=== PATIENT | male | born 1950 | race Caucasian/White ===

== ENCOUNTER → 2016-05-06 | Outpatient (CLI) | payer MEDICARE ==
[~2016-05-06] MED LIST: ADVIN25/60 INH; ALBUAER2 INH; AMLO2.5T PO; ASPCH81X PO; ATOR-54 PO; BROM0.07 OPL; BUPR200T2 PO; GABA1CAP PO; GABA1CAP4 PO; GLC500 PO; IPRA1AER2 INH; LOSA50TA6 PO; LVMI SC; METF1000 PO; METO50TA7 PO; NVLGI/PEN SC; PRED1SUS OPL; SERT50TA PO; SPRIN/30 INH
[2016-05-06 13:10] LABS: ESTIMATED AVERAGE GLUCOSE 194 mg/dl; HA1C FLAG Normal (Normal)
[2016-05-06 13:49] LABS: ALT/SGPT 46 U/L (12-78); BLOOD UREA NITROGEN 19 mg/dl (7-18); CALCIUM 9.3 mg/dl (8.5-10.1); CARBON DIOXIDE 25 mmol/L (21-32); CHLORIDE 109 mmol/L (98-107); CHOLESTEROL 158 mg/dl (0-200); GLUCOSE 242 mg/dl (70-99); POTASSIUM 4.9 mmol/L (3.5-5.1); SODIUM 143 mmol/L (136-145)
[2016-05-06 14:00] LABS: HDL CHOLESTEROL 40 mg/dl; TRIGLYCERIDES 218 mg/dl (0-150); VERY LOW DENSITY LIPOPROT CALC 44 mg/dl
== END | disposition home or self-care (01) ==
LOC: C.LABMFLN 11:18
PROVIDERS: ATTEND Family Medicine
DX: E11.9 Type 2 diabetes mellitus without complications (principal); E78.00 Pure hypercholesterolemia, unspecified; I10 Essential (primary) hypertension

== ENCOUNTER → 2016-05-12 | Day surgery (SDC) | payer MEDICARE ==
[2016-04-30 13:39] VITALS: Ht 181.6 cm; Wt 118.2 kg
[~2016-05-12] VITALS: Ht 181.6 cm; Wt 118.2 kg
[~2016-05-12] MED LIST changes: +500ML BSS 0.3ML EPI 1:1000PF IRRIG ONE; +ACETAMINOPHEN 325 MG TAB PO PRN; +AMVISC PLUS 0.8ML SYRINGE INT OCU ONE; +ATROPINE SULFATE 0.1 MG/ML 5ML SYR IV PRN; +AcetaZOLAMIDE 250 MG TAB PO SCH; +BETAXOLOL HCL 0.25% OP SUSP PER DROP CHARGE OPL SCH; +BRIMONIDINE TART 0.2% OP SOLN PER DROP CHARGE ONE; +BSS FLUSH ONE; +ENDOCOAT 0.85ML SYRINGE INT OCU ONE; +EpHEDrine SULFATE INJ 50 MG/ML AMP IV PRN; +EpINEphrine INJ 1MG/ML AMP 1 MG/ML AMP ONE; +LACTATED RINGER'S 1000ML 500 ML IV SCH; +LIDOCAINE 4% OP SOLN DROP CHARGE ONE; +LIDOCAINE 4% OP SOLN DROP CHARGE OPL SCH; +LIDOCAINE HCL 1% MPF 2 ML VIAL ONE; +MIDAZOLAM HCL 1 MG/ML 2ML VIAL ONE; +MIX: 4ML BSS 1ML EPI 1:1000 PF INSTIL ONE; +MOXIFLOXACIN OPH SOLN PER DROP CHARGE ONE; +OCUCOAT 1 ML SOLN IO ONE; +POVIDONE-IODINE OP SOLN 30 ML BTL ONE; +PROPARACAINE 0.5% OP SOLN PER DROP CHARGE OPL SCH; +TOBRAMYCIN/DEXAMETHASONE OPH OINT PER APPLN CHARGE ONE
--- NOTE | 2016-05-12 10:04 | History & Physical Bridge - [place] ---
H&P Re-Evaluation Bridge Note: I have examined the patient, reviewed the History & Physical and in the interval since the performance of the History & Physical I have noted the following changes of clinical significance: No changes noted
[2016-05-12] MEDS: PHENYLEPHRINE HCL 2.5% OP SOLN PER DROP CHARGE OPL SCH ×2 (11:00→11:05)
[2016-05-12] MEDS: TROPICAMIDE 1% OP SOLN PER DROP CHARGE OPL SCH ×2 (11:01→11:06)
[2016-05-12] MEDS: CYCLOPENTOLATE HCL 1% OP SOLN PER DROP CHARGE OPL SCH ×2 (11:02→11:07)
[2016-05-12] MEDS: MOXIFLOXACIN OPH SOLN PER DROP CHARGE OPL SCH ×2 (11:03→11:13)
--- NOTE | 2016-05-12 12:10 | Discharge Instructions-SurgCtr ---
Discharge Instructions Visit Reason for Visit: Cataract Left Eye Discharge Discharge Diagnosis / Problem: lens implant left eye Discharge Goals Goal(s): Improve function Medications Stopped Medications Name(s): metformin last dose 48 hours ago Activity Recommendations Activity Limitations: resume your previous activity Lifting Limitations: no more than 10 pounds Exercise/Sports Limitations: gradually increase as tolerated May Resume Sexual Activity: when tolerated Shower/Bathe: tomorrow Driving or Machine Use: resume 1 day after discharge Anesthesia . Post Anesthesia Instructions: If you have had General Anesthesia or IV Sedation: * Do not drive today. * Resume driving when surgeon permits. * Do not make important decisions or sign legal documents today. * Call surgeon for: 1. Temperature elevations greater than 101 degrees F. 2. Uncontrollable pain. 3. Excessive bleeding. 4. Persistent nausea and vomiting. 5. Medication intolerance (nausea, vomiting or rash). * For nausea and vomiting use only clear liquids such as: tea, soda, bouillon until nausea subsides, then gradually increase diet as tolerated. * If you have any concerns or questions, call your surgeon's office. If physician is unavailable and it is an emergency, call 911 or go to the nearest emergency room. . Instructions / Follow-Up Instructions / Follow-Up ACTIVITY RECOMMENDATIONS: * Light activities. * Mild irritation and blurred vision are common for the first few days. * You may walk outside, read, watch television. * Redness around the white part of the eye is common. MEDICATIONS: Resume previous medications unless instructed otherwise by your surgeon. * Take white Diamox (Acetazolamide) tablet at 3 pm today. Start all eye drops at 3 pm today: * Eye drops (today and tomorrow): Prednisone - one drop in operative eye every 3 hours while awake Ofloxacin - one drop in operative eye every 3 hours while awake SPECIAL CARE INSTRUCTIONS: * Tape plastic shield over eye to sleep at night. Call your doctor at with any concerns or problems. FOLLOW UP VISIT: Follow-up with Dr Agustin at [place] office as scheduled. Diet Recommendations Home Diet: no limitations Procedures Procedures Performed: cataract extraction with lens implant Pending Studies Studies pending at discharge: no Medical Emergencies . Who to Call and When: Medical Emergencies: If at any time you feel your situation is an emergency, please call 911 immediately. . Non-Emergent Contact Non-Emergency issues call your: Archeology Faculty Member Call Non-Emergent contact if: your pain is not controlled [phone] . . "Provider Documentation" section prepared by Aj Agustin.
--- NOTE | 2016-05-12 12:11 | [facility] Operative Report ---
Operative Report Date of Service May 12, 2016. Operative Report 1. PREOPERATIVE DIAGNOSIS: Senile nuclear cataract, left eye. 2. POSTOPERATIVE DIAGNOSIS: Senile nuclear cataract, left eye. 3. PROCEDURE: Phacoemulsification of left cataract with posterior chamber lens implant, type [employer]ch [employer] Lomb, model [id number], power +22.5 diopters. ANESTHESIA: Local standby. SURGEON: Dr. Agustin. COMPLICATIONS: None. OPERATING TIME: 10 minutes. 4. OPERATION AND FINDINGS: DESCRIPTION OF PROCEDURE: The left pupil was dilated. The anesthetic was administered using a topical technique. The left eye was prepped and draped. A speculum was placed. A clear corneal incision was formed. The chamber was filled with Amvisc Plus and Endocoat. Epinephrine solution was used. A paracentesis was placed. A capsulorrhexis was performed. The nucleus was hydrodissected. A dense lens was removed with phacoemulsification. Time was 10.67 seconds. The aspiration unit was used to remove the cortex. The capsule was filled with Amvisc Plus. The lens implant was folded and placed into the capsule. The incision was hydrated. The Amvisc was aspirated. The wound was secure. The chamber was deep. The pupil was round. TobraDex ointment and Vigamox solution were placed. The speculum was removed. The patient was returned to the Recovery Room in stable condition. I attest to the content of the Intraoperative Record and any orders documented therein. Any exceptions are noted below. The scribe's documentation has been prepared in my presence, under my direction and personally reviewed by me in its entirety. I confirm that the note above accurately reflects all work, treatment, procedures, and medical decision making performed by me. I personally scribed for Aj Agustin M.D. ([facility]) on 05/12/16 at 12:11. Electronically submitted by Priyanka Chamberlain ([facility]).
[2016-05-12 12:12] VITALS: TEMP 36.8
--- NOTE | 2016-05-12 12:27 | Anesthesia Progress Nt - [facility] ---
Anesthesia Post Op Note Date & Time May 12, 2016 at 12:28 Vital Signs Pain Intensity: 0 Vital Signs Past 12 Hours Date Time Temp Pulse Resp B/P Pulse Ox O2 Delivery O2 Flow Rate FiO2 05/12/16 10:44 36.6 84 20 146/86 96 Room Air Notes Mental Status: alert / awake / arousable, participated in evaluation Pt Amnestic to Procedure: Yes Nausea / Vomiting: adequately controlled Pain: adequately controlled Airway Patency, RR, SpO2: stable & adequate BP & HR: stable & adequate Hydration State: stable & adequate Anesthetic Complications: no major complications apparent
[2016-05-12 12:50] VITALS: BP 127/77; PULSE 74; O2SAT 97
== END | disposition home or self-care (01) ==
LOC: X.SURG 09:59
PROVIDERS: ATTEND Specialist
DX: H25.12 Age-related nuclear cataract, left eye (principal); I25.10 Atherosclerotic heart disease of native coronary artery without angina pectoris; I10 Essential (primary) hypertension; E11.36 Type 2 diabetes mellitus with diabetic cataract; J44.9 Chronic obstructive pulmonary disease, unspecified; G47.33 Obstructive sleep apnea (adult) (pediatric); M19.90 Unspecified osteoarthritis, unspecified site; F41.9 Anxiety disorder, unspecified; F32.9 Major depressive disorder, single episode, unspecified; Z68.36 Body mass index [BMI] 36.0-36.9, adult; I25.2 Old myocardial infarction; Z79.4 Long term (current) use of insulin; Z98.890 Other specified postprocedural states; Z87.891 Personal history of nicotine dependence

== ENCOUNTER → 2016-06-16 | Day surgery (SDC) | payer MEDICARE ==
[2016-05-27 13:18] VITALS: Ht 181.6 cm; Wt 118.2 kg
[~2016-06-16] VITALS: Ht 181.6 cm; Wt 118.2 kg
[~2016-06-16] MED LIST changes: -500ML BSS 0.3ML EPI 1:1000PF IRRIG ONE; -AMVISC PLUS 0.8ML SYRINGE INT OCU ONE; -BETAXOLOL HCL 0.25% OP SUSP PER DROP CHARGE OPL SCH; +BETAXOLOL HCL 0.25% OP SUSP PER DROP CHARGE OPR SCH; -BSS FLUSH ONE; -ENDOCOAT 0.85ML SYRINGE INT OCU ONE; -LIDOCAINE 4% OP SOLN DROP CHARGE OPL SCH; +LIDOCAINE 4% OP SOLN DROP CHARGE OPR SCH; -MIX: 4ML BSS 1ML EPI 1:1000 PF INSTIL ONE; -OCUCOAT 1 ML SOLN IO ONE; -PROPARACAINE 0.5% OP SOLN PER DROP CHARGE OPL SCH; +PROPARACAINE 0.5% OP SOLN PER DROP CHARGE OPR SCH
[2016-06-16] MEDS: PHENYLEPHRINE HCL 2.5% OP SOLN PER DROP CHARGE OPR SCH ×2 (08:44→08:49)
[2016-06-16] MEDS: TROPICAMIDE 1% OP SOLN PER DROP CHARGE OPR SCH ×2 (08:45→08:50)
[2016-06-16] MEDS: CYCLOPENTOLATE HCL 1% OP SOLN PER DROP CHARGE OPR SCH ×2 (08:46→08:51)
[2016-06-16] MEDS: MOXIFLOXACIN OPH SOLN PER DROP CHARGE OPR SCH ×2 (08:47→08:56)
--- NOTE | 2016-06-16 09:38 | Discharge Instructions-SurgCtr ---
Discharge Instructions Date of Service Jun 16, 2016. Visit Reason for Visit: Cataract Right Eye Discharge Discharge Diagnosis / Problem: lens implnat right eye Discharge Goals Goal(s): Improve function Activity Recommendations Activity Limitations: resume your previous activity Lifting Limitations: no more than 10 pounds Exercise/Sports Limitations: gradually increase as tolerated May Resume Sexual Activity: when tolerated Shower/Bathe: tomorrow Driving or Machine Use: resume 1 day after discharge Anesthesia . Post Anesthesia Instructions: If you have had General Anesthesia or IV Sedation: * Do not drive today. * Resume driving when surgeon permits. * Do not make important decisions or sign legal documents today. * Call surgeon for: 1. Temperature elevations greater than 101 degrees F. 2. Uncontrollable pain. 3. Excessive bleeding. 4. Persistent nausea and vomiting. 5. Medication intolerance (nausea, vomiting or rash). * For nausea and vomiting use only clear liquids such as: tea, soda, bouillon until nausea subsides, then gradually increase diet as tolerated. * If you have any concerns or questions, call your surgeon's office. If physician is unavailable and it is an emergency, call 911 or go to the nearest emergency room. . Instructions / Follow-Up Instructions / Follow-Up ACTIVITY RECOMMENDATIONS: * Light activities. * Mild irritation and blurred vision are common for the first few days. * You may walk outside, read, watch television. * Redness around the white part of the eye is common. MEDICATIONS: Resume previous medications unless instructed otherwise by your surgeon. * Take white Diamox (Acetazolamide) tablet at 1 pm today. Start all eye drops at 1 pm today: * Eye drops (today and tomorrow): Prednisone - one drop in operative eye every 3 hours while awake Ofloxacin - one drop in operative eye every 3 hours while awake SPECIAL CARE INSTRUCTIONS: * Tape plastic shield over eye to sleep at night. Call your doctor at with any concerns or problems. FOLLOW UP VISIT: Follow-up with Dr Agustin at [facility] as scheduled. Diet Recommendations Home Diet: no limitations Procedures Procedures Performed: cataract extraction with lens implant Pending Studies Studies pending at discharge: no Medical Emergencies . Who to Call and When: Medical Emergencies: If at any time you feel your situation is an emergency, please call 911 immediately. . Non-Emergent Contact Non-Emergency issues call your: Process Excellence Manager Call Non-Emergent contact if: your pain is not controlled [phone] . . "Provider Documentation" section prepared by Aj Agustin.
[2016-06-16 09:42] VITALS: TEMP 36.8
--- NOTE | 2016-06-16 09:42 | [facility] Operative Report ---
Operative Report Date of Service Jun 16, 2016. Operative Report 1. PREOPERATIVE DIAGNOSIS: Senile Posterior Subcapsular Cataract, right eye. 2. POSTOPERATIVE DIAGNOSIS: Senile Posterior Subcapsular Cataract, right eye. 3. PROCEDURE: Phacoemulsification of right cataract with posterior chamber lens implant, type Wilbert, model SN6AT4, power +22.5 diopters. ANESTHESIA: Local standby. SURGEON: Dr. Agustin. COMPLICATIONS: None. OPERATING TIME: 10 minutes. 4. OPERATION AND FINDINGS: DESCRIPTION OF PROCEDURE: The right pupil was dilated. The anesthetic was administered using a topical technique. The right eye was prepped and draped. A speculum was placed. A clear corneal incision was formed. The chamber was filled with Amvisc Plus and Endocoat. Epinephrine solution was used. A paracentesis was placed. A capsulorrhexis was performed. The nucleus was hydrodissected. The lens was removed with phacoemulsification. Time was 4.70 seconds. The aspiration unit was used to remove the cortex. The capsule was filled with Amvisc Plus. The lens implant was folded and placed into the capsule. The incision was hydrated. The Amvisc was aspirated. The wound was secure. The chamber was deep. The pupil was round. Brimonidine, TobraDex ointment and Vigamox solution were placed. The speculum was removed. The patient was returned to the Recovery Room in stable condition. I attest to the content of the Intraoperative Record and any orders documented therein. Any exceptions are noted below. The scribe's documentation has been prepared in my presence, under my direction and personally reviewed by me in its entirety. I confirm that the note above accurately reflects all work, treatment, procedures, and medical decision making performed by me. I personally scribed for Aj Agustin M.D. ([facility]) on 06/16/16 at 09:42. Electronically submitted by Priyanka Chamberlain ([email or web address]).
[2016-06-16 10:05] VITALS: BP 140/85; PULSE 76; O2SAT 97
--- NOTE | 2016-06-16 10:07 | Anesthesia Progress Nt - [facility] ---
Anesthesia Post Op Note Date & Time Jun 16, 2016 at 10:07 Vital Signs Pain Intensity: 0 Vital Signs Past 12 Hours Date Time Temp Pulse Resp B/P Pulse Ox O2 Delivery O2 Flow Rate FiO2 06/16/16 10:05 76 18 140/85 97 Room Air 06/16/16 09:42 36.8 69 20 159/91 96 Room Air 06/16/16 08:33 36.7 75 16 146/92 96 Room Air Notes Mental Status: alert / awake / arousable, participated in evaluation Pt Amnestic to Procedure: Yes Nausea / Vomiting: adequately controlled Pain: adequately controlled Airway Patency, RR, SpO2: stable & adequate BP & HR: stable & adequate Hydration State: stable & adequate Anesthetic Complications: no major complications apparent
== END | disposition home or self-care (01) ==
LOC: X.SURG 07:50
PROVIDERS: ATTEND Specialist
DX: H25.041 Posterior subcapsular polar age-related cataract, right eye (principal); I10 Essential (primary) hypertension; I25.10 Atherosclerotic heart disease of native coronary artery without angina pectoris; G47.33 Obstructive sleep apnea (adult) (pediatric); I25.2 Old myocardial infarction; E11.9 Type 2 diabetes mellitus without complications; Z79.4 Long term (current) use of insulin

== ENCOUNTER → 2016-08-23 | Outpatient (CLI) | payer MEDICARE ==
[~2016-08-23] MED LIST changes: -ACETAMINOPHEN 325 MG TAB PO PRN; -ATROPINE SULFATE 0.1 MG/ML 5ML SYR IV PRN; -AcetaZOLAMIDE 250 MG TAB PO SCH; -BETAXOLOL HCL 0.25% OP SUSP PER DROP CHARGE OPR SCH; -BRIMONIDINE TART 0.2% OP SOLN PER DROP CHARGE ONE; -EpHEDrine SULFATE INJ 50 MG/ML AMP IV PRN; -EpINEphrine INJ 1MG/ML AMP 1 MG/ML AMP ONE; -LACTATED RINGER'S 1000ML 500 ML IV SCH; -LIDOCAINE 4% OP SOLN DROP CHARGE ONE; -LIDOCAINE 4% OP SOLN DROP CHARGE OPR SCH; -LIDOCAINE HCL 1% MPF 2 ML VIAL ONE; -MIDAZOLAM HCL 1 MG/ML 2ML VIAL ONE; -MOXIFLOXACIN OPH SOLN PER DROP CHARGE ONE; -POVIDONE-IODINE OP SOLN 30 ML BTL ONE; -PROPARACAINE 0.5% OP SOLN PER DROP CHARGE OPR SCH; -TOBRAMYCIN/DEXAMETHASONE OPH OINT PER APPLN CHARGE ONE
[2016-08-23 12:59] LABS: BASO % 0.4 %; BASO ABS # 0.03 K/uL (0-0.2); COMPLETE YES; EOS % 1.6 %; HEMATOCRIT 33.4 % (42-52); IG% 0.2 %; LYMPH % 14.5 %; LYMPH ABS # 1.19 K/uL (1.2-3.4); MEAN CELL VOLUME 96.3 fL (80-100); MEAN CORPUSCULAR HEMOGLOBIN 31.4 pg (25-34); MEAN CORPUSCULAR HGB CONC 32.6 g/dl (32-36); MEAN PLATELET VOLUME 10.8 fL (7.4-10.4); MONO % 7.1 %; NEUT % 76.2 %; PLATELET COUNT 257 K/uL (130-400); RED BLOOD COUNT 3.47 M/uL (4.7-6.1); WHITE BLOOD COUNT 8.21 K/uL (4.8-10.8)
[2016-08-23 13:21] LABS: ESTIMATED AVERAGE GLUCOSE 214 mg/dl; HA1C FLAG Normal (Normal)
[2016-08-23 13:50] LABS: RATIO 22.1 mcg/mg (0-30.0)
[2016-08-23 13:59] LABS: ALT/SGPT 143 U/L (12-78); AST/SGOT 71 U/L (15-37); BLOOD UREA NITROGEN 17 mg/dl (7-18); CALCIUM 9.1 mg/dl (8.5-10.1); CARBON DIOXIDE 25 mmol/L (21-32); CHLORIDE 109 mmol/L (98-107); GLUCOSE 116 mg/dl (70-99); POTASSIUM 4.5 mmol/L (3.5-5.1); SODIUM 141 mmol/L (136-145)
[2016-08-23 14:11] LABS: ALB/GLOB RATIO 0.6 (0.9-2); ALKALINE PHOSPHATASE 226 U/L (45-117); PROSTATE SPECIFIC ANTIGEN 0.232 ng/ml (0.000-4.000); RHEUMATOID FACTOR < 10.0 U/mL (0-15)
[2016-08-23 14:21] LABS: LYME DISEASE AB IGG POS (NEG); LYME DISEASE AB IGM POS (NEG)
[2016-08-26 09:06] LABS: 18KDIGG BAND REACTIVE (NONREACTIVE); 23KDIGG BAND REACTIVE (NONREACTIVE); 23KDIGM BAND REACTIVE (NONREACTIVE); 28KDIGG BAND NONREACTIVE (NONREACTIVE); 30KDIGG BAND NONREACTIVE (NONREACTIVE); 39KDIGG BAND NONREACTIVE (NONREACTIVE); 39KDIGM BAND REACTIVE (NONREACTIVE); 41KDIGG BAND REACTIVE (NONREACTIVE); 41KDIGM BAND REACTIVE (NONREACTIVE); 45KDIGG BAND REACTIVE (NONREACTIVE); 58KDIGG BAND REACTIVE (NONREACTIVE); 66KDIGG BAND NONREACTIVE (NONREACTIVE); 93KDIGG BAND NONREACTIVE (NONREACTIVE)
== END | disposition home or self-care (01) ==
LOC: C.LABMFLN 11:28
PROVIDERS: ATTEND Family Medicine
DX: E11.9 Type 2 diabetes mellitus without complications (principal); M25.50 Pain in unspecified joint; R07.2 Precordial pain; A69.20 Lyme disease, unspecified; Z12.5 Encounter for screening for malignant neoplasm of prostate

== ENCOUNTER 2016-10-13 21:12 | Emergency (ER) | payer MEDICARE ==
[~2016-10-13] VITALS: Ht 182.9 cm; Wt 97.0 kg
[~2016-10-13 21:12] MED LIST changes: -AMLO2.5T PO; -GABA1CAP4 PO; -GLC500 PO
[2016-10-13 21:15] VITALS: Ht 182.9 cm; Wt 97.0 kg
[2016-10-13] MEDS ORDERED: AMLO2.5T PO (21:55)
[2016-10-13] MEDS ORDERED: GLC500 PO (21:55)
[2016-10-13] MEDS ORDERED: GABA1CAP4 PO (21:55)
--- NOTE | 2016-10-13 22:11 | DIAGNOSTIC IMAGING REPORT ---
LEFT ANKLE MIN 3 VIEWS ROUTINE CLINICAL HISTORY: Left lower leg pain. COMPARISON: None FINDINGS: Alignment of the left ankle is anatomic. There is no acute fracture. Note is made of a 2.2 x 2 cm lucent lesion within the anterior process of the calcaneus. Talar dome is intact. There is mild posterior and plantar calcaneal spurring. IMPRESSION: 1. No acute fracture. 2. 2.2 x 2 cm lucent lesion within the calcaneus. This lesion is benign. Differential considerations include a bone cyst and intraosseous lipoma. 3. Mild posterior and plantar calcaneal spurring. Electronically signed by: Cheo Sotelo M.D. 10/13/2016 10:10 PM Dictated Date/Time: 10/13/2016 10:02 PM
--- NOTE | 2016-10-13 22:18 | DIAGNOSTIC IMAGING REPORT ---
LEFT LOWER EXTREMITY VENOUS DOPPLER CLINICAL HISTORY: Left lower leg pain. COMPARISON STUDY: No previous studies for comparison. TECHNIQUE: Sonography of the deep venous system of the left lower extremity was performed. Compression and augmentation were evaluated. FINDINGS: The left common femoral, superficial femoral and popliteal veins were compressible. Augmentation was normal. Flow was shown within the deep calf vessels. IMPRESSION: No evidence of deep venous thrombus within the left lower extremity. Electronically signed by: Cheo Sotelo M.D. 10/13/2016 10:17 PM Dictated Date/Time: 10/13/2016 10:17 PM
--- NOTE | 2016-10-13 22:24 | EMERGENCY ROOM VISIT NOTE ---
History First contact with patient: 21:23 Chief Complaint: LEG PAIN,LEG INJURY Stated Complaint: LEG PAIN History of Present Illness The patient is a 66 year old male who presents to the Emergency Room with complaints of left lower leg pain and swelling for the past day after lifting his leg up to get on the mower. Patient is unsure if he twisted his leg. He does have peripheral neuropathy and does not have agrees feeling in his legs. No history DVT or PE in the past. Patient denies chest pain, dyspnea, fever, chills, cough, congestion, abdominal pain. Pain currently 4 out of 10 worse with movement and better with rest describes as throbbing. Review of Systems See HPI for pertinent positives & negatives. A total of 10 systems reviewed and were otherwise negative. Past Medical/Surgical History COPD, diabetes, hypertension, peripheral neuropathy, hyperlipidemia Social History Smoking Status: Former Smoker Housing Status: lives with family Current/Historical Medications Scheduled Amlodipine Besylate (Norvasc), 1 TAB PO DAILY Aspirin (Aspirin Chewable), 81 MG PO QAM Atorvastatin (Lipitor), 20 MG PO HS Bromfenac Sodium (Ophth) (Prolensa), 1 DROP OPL DAILY Bupropion (Wellbutrin Sr), 200 MG PO BID Fluticasone Prop/Salmeterol (Advair Diskus 250/50 60 Dose), 1 PUFF INH QAM Gabapentin (Gabapentin), 1 TAB PO TID Insulin Aspart (Novolog Flexpen), 1 DOSE SC ACHS Insulin Detemir (Levemir), 62 UNITS SC HS Losartan Potassium (Cozaar), 50 MG PO QAM Metformin HCl (Metformin HCl), 2 TAB PO BID Metoprolol Succ (Toprol Xl) (Toprol-Xl), 50 MG PO QAM Prednisolone Acetate (Ophth) (Omnipred), 1 DROPS OPL BID Sertraline (Zoloft), 50 MG PO QAM Tiotropium [place] (Spiriva Handihaler), 1 CAP INH BID Scheduled PRN Ipratropium-Albuterol (Combivent Respimat), 1 PUFFS INH QID PRN for Shortness of Breath Physical Exam Vital Signs Date Time Temp Pulse Resp B/P (MAP) Pulse Ox O2 Delivery O2 Flow Rate FiO2 10/13/16 21:15 37.0 80 16 143/83 97 Room Air Physical Exam VITALS: Vitals are noted on the nurse's note and reviewed by myself. Vital signs stable. GENERAL: Pleasant male, in no acute distress, nondiaphoretic, well-developed well-nourished. SKIN: Capillary reflex less than 2 seconds. HEENT: Normocephalic. PERRLA. EOMI. Nares patent. Mucous membranes moist. Neck is supple without nuchal rigidity. HEART: Regular rate and rhythm LUNGS: Clear to auscultation bilaterally without wheezes, rales or rhonchi. No retractions or accessory muscle use. ABDOMEN: Positive bowel sounds x 4. Normal tympanic percussion. Soft, nontender, without masses or organomegaly. Banuelos sign negative. No guarding or rebound tenderness. MUSCULOSKELETAL: No gross musculoskeletal defects. Trace left pedal edema. Left calf tenderness. Right lower leg with no edema and nontender to palpation. NEURO: Patient was alert and oriented to person place and time. Normal sensation to light and sharp touch. No focal neurological deficits. Medical Decision & Procedures ED Course Prior records reviewed and summarized above. Triage Nursing notes reviewed. Additional history obtained from the family. The patient's history was concerning for swelling and pain in the leg. Differential diagnosis: Etiologies such as DVT, musculoskeletal, infection, joint effusion, trauma, lymphedema, idiopathic, CHF, as well as others were entertained.. Physical examination: The physical examination revealed no signs of infection. Neurovascularly intact. ER treatment provided: Patient declined pain meds On reassessment the patient felt better. Diagnostics interpreted by me: Imaging studies: Ultrasound negative for DVT per radiology LEFT ANKLE MIN 3 VIEWS ROUTINE CLINICAL HISTORY: Left lower leg pain. COMPARISON: None FINDINGS: Alignment of the left ankle is anatomic. There is no acute fracture. Note is made of a 2.2 x 2 cm lucent lesion within the anterior process of the calcaneus. Talar dome is intact. There is mild posterior and plantar calcaneal spurring. IMPRESSION: 1. No acute fracture. 2. 2.2 x 2 cm lucent lesion within the calcaneus. This lesion is benign. Differential considerations include a bone cyst and intraosseous lipoma. 3. Mild posterior and plantar calcaneal spurring. This appears to be consistent with left lower leg pain that most likely his muscle skeletal in etiology. Patient has a walker at home was advised to use this. He was placed in an air gel splint for comfort and advised to wear this until pain subsides. Neurovascular status was rechecked after placement and is intact. Patient was neurovascularly and neurologically intact. He is well- appearing. He was advised to follow-up with family care in orthopedics in a few days or here in the ER sooner for severe pain, numbness, tingling, worsening signs or symptoms or as needed. By the evaluation outlined above emergent etiologies such as DVT, septic joint, trauma, infection, CHF, as well as others were deemed relatively unlikely. The pt informed about the findings as listed above. All questions were answered and pleased with the treatment. Return instructions were outlined and the patient was discharged in stable condition. Referral: The patient was referred back to their primary care physician for follow-up in 2 to 3 days for a recheck of the current condition. Case reviewed with my attending. Medical Decision As above [place] Drug Monitoring Program Search Results: patient reviewed within database Medication Reconcilliation Current Medication List: was personally reviewed by me Blood Pressure Screening Patient's blood pressure: Elevated blood pressure Blood pressure disposition: Elevated BP felt to be situational Impression Primary Impression: Pain in left lower leg Departure Information Dispostion Home / Self-Care Condition GOOD Referrals Ricky Schultz M.D. (PCP) Patient Instructions My [facility] Additional Instructions Ibuprofen(Motrin, Advil) may be used for fever or pain. Use 600mg every six hours as needed. Take with food. Avoid using more than 2400mg in a 24 hour period. Do not use 2400mg per day for more than three consecutive days without physician direction. Prolonged inappropriate use can lead to stomach upset or ulcers. This medication can be taken if you need to drive, work, or perform activities which may be dangerous when taking narcotic pain medication. (AND/OR) Acetaminophen(Tylenol) may be used for fever or pain. Use 1000mg every six hours as needed. Avoid using more than 3000mg in a 24 hour period. This medication can be taken if you need to drive, work, or perform activities which may be dangerous when taking narcotic pain medication. Ice compresses for 20 minutes at a time four times daily for 2-3 days. Use your walker until you are pain-free Rest and elevate your injury. Wear ankle gel splint until pain subsides. Do not have it so tight that you cannot feel your foot. Continue current medications. Return to the ER immediately for any numbness, tingling, severe pain, extreme swelling in the extremity or as needed. Call Orthopedics in 3-5 days if symptoms persist to arrange follow up for your injury.
[2016-10-13 22:31] VITALS: BP 143/83; PULSE 80; TEMP 37; O2SAT 97
--- NOTE | 2016-10-13 22:35 | EMERGENCY ROOM VISIT NOTE ---
ED Visit Note First contact with patient: 21:23 This Patient was discussed with the physician Wholesaler, GREGORY Bateman. The pertinent historical and physical exam findings were confirmed. I agree with the studies ordered and with the interpretations of these studies. I agree with the disposition and care plan.
== END 2016-10-13 22:32 | disposition home or self-care (01) ==
LOC: C.EDB 21:13 → C.EDD 22:32
DX: M79.662 Pain in left lower leg (principal); M89.8X7 Other specified disorders of bone, ankle and foot; E11.42 Type 2 diabetes mellitus with diabetic polyneuropathy; I10 Essential (primary) hypertension; J44.9 Chronic obstructive pulmonary disease, unspecified; E78.5 Hyperlipidemia, unspecified; Z79.82 Long term (current) use of aspirin; Z79.4 Long term (current) use of insulin; Z79.84 Long term (current) use of oral hypoglycemic drugs; Z87.891 Personal history of nicotine dependence

== ENCOUNTER → 2016-12-31 | Outpatient (CLI) | payer MEDICARE ==
[~2016-12-31] MED LIST changes: -ALBUAER2 INH; +AMLO2.5T PO; -GABA1CAP PO; +GABA1CAP4 PO; +GLC500 PO; -METF1000 PO
[2016-12-31 13:40] LABS: ESTIMATED AVERAGE GLUCOSE 174 mg/dl; HA1C FLAG Normal (Normal)
[2016-12-31 14:08] LABS: BLOOD UREA NITROGEN 22 mg/dl (7-18); BUN/CREATININE RATIO 16.7 (10-20); CALCIUM 9.9 mg/dl (8.5-10.1); CARBON DIOXIDE 29 mmol/L (21-32); CHLORIDE 105 mmol/L (98-107); GLUCOSE 186 mg/dl (70-99); POTASSIUM 4.9 mmol/L (3.5-5.1); SODIUM 139 mmol/L (136-145)
== END | disposition home or self-care (01) ==
LOC: C.LABMFLN 08:49
PROVIDERS: ATTEND Family Medicine
DX: E11.9 Type 2 diabetes mellitus without complications (principal)

== ENCOUNTER 2017-08-05 11:14 | Emergency (ER) | payer OTHER ==
[~2017-08-05] VITALS: Ht 180.3 cm; Wt 104.0 kg
[~2017-08-05 11:14] MED LIST changes: -BROM0.07 OPL; +GABA-1219 PO; -GABA1CAP4 PO; -METO50TA7 PO; +METO50TA8 PO; -PRED1SUS OPL
[2017-08-05 11:23] VITALS: TEMP 36.6; Ht 180.3 cm; Wt 104.0 kg
[2017-08-05] MEDS ORDERED: LIDODERM (LIDOCAINE) PATCH 5% TD STA (11:47)
[2017-08-05] MEDS ORDERED: ACETAMINOPHEN 500 MG TAB PO STA (11:47)
[2017-08-05] MEDS ORDERED: LIDO1PAD2 TD ×2 (12:01→13:11)
--- NOTE | 2017-08-05 12:05 | EMERGENCY ROOM VISIT NOTE ---
ED Visit Note First contact with patient: 11:31 CHIEF COMPLAINT: Low back pain, chronic spinal stenosis HISTORY OF PRESENT ILLNESS: This 67-year-old male patient presents to the emergency department, ambulatory, complaining of pain in the low back which began 1 year ago. The pain was gradual in onset, is now constant and worse with movement. The patient states over the past 2 months the symptoms have been worsening, and they became more severe over the past few days. The pain is consistent with his previous pain, except more severe. He is currently seeing his primary care, neurology, and pain management and is scheduled to have an injection performed in August. The patient notes the pain as sharp and a 10/10. The patient has taken ibuprofen without relief of the pain. The patient denies any loss of control of their bowel or bladder functions. There has been no leg numbness or weakness, and no change in sensation. No nausea or vomiting or abdominal pain. No fever. No chest pain or shortness of breath. The patient has not had prior back injuries. There was no recent back injury to cause a flareup of his symptoms. No dysuria or increased urinary frequency. REVIEW OF SYSTEMS: A 10 system review of systems was performed with positives and pertinent negatives listed in the history of present illness. All other systems were reviewed and are negative. ALLERGIES: Hydrocodone MEDICATIONS: Amlodipine, aspirin, Lipitor, Wellbutrin, Advair, gabapentin, NovoLog, Levemir, Combivent, Cozaar, metformin, Toprol, Zoloft, Spiriva PMH: Diabetes, hypertension, asthma, bronchitis, emphysema, spinal stenosis SOCIAL HISTORY: The patient lives locally with family. He denies drug, alcohol, tobacco use. PHYSICAL EXAM: VITALS: Vitals are noted on the nurse's note and reviewed by myself. Vital signs stable. GENERAL: This is a 67-year-old white male, in no acute distress, nondiaphoretic , well-developed well-nourished. SKIN: The skin was without rashes, erythema, edema, or bruising. Capillary refill less than 2 seconds. NECK: Supple without nuchal rigidity. No cervical spine tenderness. No paraspinous muscle tenderness. HEART: Regular rate and rhythm without murmurs gallops or rubs. LUNGS: Clear to auscultation bilaterally without wheezes, rales or rhonchi. ABDOMEN: Positive bowel sounds x 4. Normal tympanic percussion. Soft, nontender, without masses or organomegaly. Banuelos sign negative. MUSCULOSKELETAL: No muscle atrophy, erythema, or edema noted of the back. There is no tenderness over the lumbar spinous processes. There is no tenderness over the paraspinous muscles bilaterally. There is no tenderness over the thoracic spine or paraspinous muscles. There are no muscle spasms present. The patient is slow to move around with maximum tenderness with sitting from a lying position. Negative bilateral straight leg raise test. NEURO: Patient was alert and oriented to person place and time. Normal sensation to light and sharp touch. Deep tendon reflexes 2+ in the lower extremities. Dorsalis pedis pulse 2+ bilaterally. Strength 5/5 and equal in the bilateral lower extremities. EMERGENCY DEPARTMENT COURSE: The patient was seen and evaluated as above. The patient is currently under the care of neurology, his primary care provider, and pain management. He is scheduled to have an injection on September 08. Previous medical records reviewed, including an MRI which was performed June 15. 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 Slight anterior listhesis of L4 over L5. Canal stenosis appears moderate L2-L3 and moderate to severe at L4-L5. Foraminal narrowing appears significant at L4-5 and L5-S1 levels. I discussed with the patient and his that his symptoms are chronic and that he will need to manage this outpatient. They were under the impression that if they came to the emergency department, a spine surgeon would be called in and he would have surgery and be admitted for a few days. I advised the patient that as he is not experiencing any emergent symptoms including saddle anesthesia, lower extremity weakness, loss of bowel or bladder function, or other neurological symptoms that he does not meet criteria for inpatient management. I did offer to contact the spine surgeon, but discussed with him that they would likely advise the patient to call and schedule an appointment to be seen outpatient. The patient's did ask if we would schedule an appointment. I did ask the patient case coordinator to speak with the patient and schedule an appointment with the spine surgeon. The patient case coordinator did speak with the patient and his . They were under the impression that the patient will be set up with a neurologist. I advised them that Dr. Marcelino and Dr. Sutton our orthopedic spine surgeons and this is who I would recommend they see. I did provide them with the contact information to schedule their own appointment with Dr. Sutton at the request. I did offer the patient a Lidoderm patch and discussed with him the importance of alternating Tylenol and ibuprofen [id number] for increased pain management. The patient was agreeable. He was given a Lidoderm patch here in the emergency department and a prescription sent to the pharmacy. He did note mild improvement in his symptoms. Discharge instructions reviewed, the patient was discharged home in good condition. The patient was seen and evaluated by Dr. Gutiérrez. I attest that I have personally reviewed the patient's current medication list. Patient was found to have normal blood pressure on screening and does not require follow-up. Etiologies such as lumbago, sciatica, cauda equina, epidural abscess, osteomyelitis, fracture, aortic disease, metastatic disease, chronic pain, infection, renal colic, gastrointestinal, as well as others were entertained. DIAGNOSIS: Chronic spinal stenosis The chart was completed utilizing [employer] Speech voice recognition software. Grammatical errors, random word insertions, pronoun errors, and incomplete sentences are an occasional consequence of this system due to software limitations, ambient noise, and hardware issues. Any formal questions or concerns about the content, text, or information contained within the body of this dictation should be directly addressed to the provider for clarification. Current/Historical Medications Scheduled Amlodipine Besylate (Norvasc), 1 TAB PO DAILY Aspirin (Aspirin Chewable), 81 MG PO QAM Bupropion (Wellbutrin Sr), 200 MG PO BID Fluticasone Prop/Salmeterol (Advair Diskus 250/50 60 Dose), 1 PUFF INH QAM Gabapentin (Gabapentin), 1 TAB PO TID Insulin Aspart (Novolog Flexpen), 1 DOSE SC ACHS Insulin Detemir (Levemir), 20 UNITS SC BID Losartan Potassium (Cozaar), 50 MG PO QAM Metformin HCl (Metformin HCl), 1,000 MG PO BID Metoprolol Succ (Toprol Xl) (Toprol-Xl), 50 MG PO QAM Sertraline (Zoloft), 50 MG PO QAM Tiotropium [place] (Spiriva Handihaler), 1 CAP INH BID Scheduled PRN Ipratropium-Albuterol (Combivent Respimat), 1 PUFFS INH QID PRN for Shortness of Breath Lidocaine (Lidocaine), 1 PATCH TD QD PRN for Pain Allergies Coded Allergies: Hydrocodone (Verified Adverse Reaction, Mild, constipation, 08/05/17) Vital Signs Date Time Temp Pulse Resp B/P (MAP) Pulse Ox O2 Delivery O2 Flow Rate FiO2 08/05/17 13:19 65 18 127/76 96 08/05/17 11:23 36.6 68 16 175/82 97 Room Air Medications Administered Medications (Trade) Dose Ordered Sig/Loyda Route Start Time Stop Time Status Last Admin Dose Admin Acetaminophen (Tylenol Tab) 1,000 mg NOW STAT PO 08/05/17 11:47 08/05/17 11:49 DC 08/05/17 12:03 1,000 MG Lidocaine (Lidoderm Patch 5%) 1 patch NOW STAT TD 08/05/17 11:47 08/05/17 11:49 DC 08/05/17 12:04 1 PATCH Departure Information Impression Primary Impression: Spinal stenosis of lumbar region Dispostion Home / Self-Care Condition GOOD Prescriptions Lidocaine (LIDOCAINE) 5 % Pad 1 PATCH TD QD Y for Pain, #30 PATCH apply 1 patch in 24 hours. Patch must be removed after 12 hours, apply a new patch 12 hours later. Prov: Stephanie Camp, VICKI 08/05/17 Referrals Ricky Schultz M.D. (PCP) Sarwat Sutton D.O. Patient Instructions [facility], Spinal Cord Disease Additional Instructions You have been treated in the Emergency Department for Back Pain. You have been prescribed Lidoderm patches to be used as directed. You may only use 1 patch in 24 hours. This patch must be removed after 12 hours and a new a patch may not be applied for 12 hours after removal of the previous one. For pain control, you can use the following [id number] medicines (if >12 yo): Ibuprofen(Motrin, Advil) may be used for fever or pain. Use 600mg every six hours as needed. Take with food. Avoid using more than 2400mg in a 24 hour period. Do not use 2400mg per day for more than three consecutive days without physician direction. Prolonged inappropriate use can lead to stomach upset or ulcers. (AND/OR) Acetaminophen(Tylenol) may be used for fever or pain. Use 1000mg every six hours as needed. Avoid using more than 3000mg in a 24 hour period. *Alternate these medications every 2-3 hours for increased control of your symptoms. You may consider Tumeric 500mg daily, Glucosamine as directed on packaging, and Fish Oil 2000mg daily for your symptoms. These supplements can help with inflammation and your pain. As discussed, your condition is chronic. It may or may not be surgical. You were provided with the contact information for a local spine surgeon. Please schedule an appointment at your convenience. Continue to follow-up with your neurologist, primary care provider, and spray painting machine operator for ongoing care. If this is an acute injury, ice can be applied to the area of pain for the first 3 days to help decrease pain and inflammation. After the first 3 days, a heating pad can be used over the area for continued soothing relief. You should schedule a follow-up appointment in 2-3 days with your Primary Care Provider for further evaluation and treatment of your back pain. Return to the Emergency Department if your current symptoms worsen despite treatment course outlined above, or if you develop any of the following symptoms : intractable pain despite aforementioned treatment course, loss of control of your bowel or bladder, numbness or tingling in your groin, or development of a fever. Problem Qualifiers Primary Impression: Spinal stenosis of lumbar region Neurogenic claudication status: without neurogenic claudication Qualified Codes: M48.061 - Spinal stenosis, lumbar region without neurogenic claudication
[2017-08-05 13:19] VITALS: BP 127/76; PULSE 65; O2SAT 96
--- NOTE | 2017-08-06 00:03 | EMERGENCY ROOM VISIT NOTE ---
ED Visit Note First contact with patient: 11:31 I reviewed the patient's past medical history, medications, and visit nursing notes. I discussed the case with the physician assistant plant manager, examined the patient, and agree with the findings and plan as documented in the physician assistants note.
== END 2017-08-05 13:20 | disposition home or self-care (01) ==
LOC: C.EDB 11:15 → C.EDD 13:20
DX: M48.061 Spinal stenosis, lumbar region without neurogenic claudication (principal); Z88.5 Allergy status to narcotic agent; Z79.82 Long term (current) use of aspirin; Z79.4 Long term (current) use of insulin; Z79.899 Other long term (current) drug therapy; E11.9 Type 2 diabetes mellitus without complications; I10 Essential (primary) hypertension; J45.909 Unspecified asthma, uncomplicated; J43.9 Emphysema, unspecified

== ENCOUNTER → 2017-10-11 | Outpatient (CLI) | payer OTHER ==
[~2017-10-11] MED LIST changes: -ATOR-54 PO
[2017-10-11 13:27] LABS: BLOOD UREA NITROGEN 22 mg/dl (7-18); CALCIUM 9.3 mg/dl (8.5-10.1); CARBON DIOXIDE 27 mmol/L (21-32); CHOLESTEROL 212 mg/dl (0-200); CREATININE 1.15 mg/dl (0.60-1.40); GLUCOSE 205 mg/dl (70-99); LDL CHOLESTEROL CALCULATED 142 mg/dl; POTASSIUM 4.8 mmol/L (3.5-5.1); SODIUM 138 mmol/L (136-145)
[2017-10-11 14:27] LABS: HEMOGLOBIN A1C 7.6 % (4.5-5.6)
== END | disposition home or self-care (01) ==
LOC: C.LABMFLN 09:56
PROVIDERS: ATTEND Family Medicine
DX: E11.9 Type 2 diabetes mellitus without complications (principal); R94.8 Abnormal results of function studies of other organs and systems

== ENCOUNTER 2018-05-05 05:22 | Inpatient (IN) ==
--- NOTE | 2018-04-19 08:54 | PAT Medication Instructions ---
Medication Instructions Date of Service April 19, 2018 Home Medications amlodipine 2.5 mg tablet 2.5 mg PO QAM aspirin 81 mg tablet,delayed 81 mg PO DAILY bupropion HCl SR 200 mg tablet 200 mg PO BID fluticasone 250 mcg-salmeterol 50 1 inha INH DAILY gabapentin 300 mg capsule 300 mg PO TID insulin detemir (U-100) 100 25 units SQ BID ipratropium 20 mcg-albuterol 100 mcg/actuation mist for inhalation 1 puffs INH QID NEEDED losartan 50 mg tablet 50 mg PO QAM metformin 1,000 mg tablet 1,000 mg PO BID metoprolol succinate ER 50 mg 50 mg PO QAM sertraline 50 mg tablet 50 mg PO QAM tiotropium bromide 18 mcg capsule 1 cap INH BID NEEDED insulin aspart U-100 100 unit/mL 10 units SQ TIDM Calcium 1 dose PO DAILY multivitamin with minerals [Daily 1 tab PO QAM DO NOT take the morning of surgery losartan 50 mg tablet 50 mg PO QAM metformin 1,000 mg tablet 1,000 mg PO BID insulin aspart U-100 100 unit/mL 10 units SQ TIDM Calcium 1 dose PO DAILY multivitamin with minerals [Daily 1 tab PO QAM Take morning of surgery With a small sip of water, OTHERWISE NOTHING TO EAT OR DRINK AFTER MIDNIGHT: amlodipine 2.5 mg tablet 2.5 mg PO QAM aspirin 81 mg tablet,delayed 81 mg PO DAILY bupropion HCl SR 200 mg tablet 200 mg PO BID fluticasone 250 mcg-salmeterol 50 1 inha INH DAILY gabapentin 300 mg capsule 300 mg PO TID ipratropium 20 mcg-albuterol 100 mcg/actuation mist for inhalation 1 puffs INH QID NEEDED metoprolol succinate ER 50 mg 50 mg PO QAM sertraline 50 mg tablet 50 mg PO QAM tiotropium bromide 18 mcg capsule 1 cap INH BID NEEDED Take evening before surgery bupropion HCl SR 200 mg tablet 200 mg PO BID gabapentin 300 mg capsule 300 mg PO TID ipratropium 20 mcg-albuterol 100 mcg/actuation mist for inhalation 1 puffs INH QID NEEDED metformin 1,000 mg tablet 1,000 mg PO BID tiotropium bromide 18 mcg capsule 1 cap INH BID NEEDED insulin aspart U-100 100 unit/mL 10 units SQ TIDM insulin detemir (U-100) 100 25 units SQ BID Insulin Dependent Diabetic Patients * Test your blood sugar the morning of surgery * If Blood Sugar is GREATER THAN 150, take HALF of your regular dose of: insulin detemir (U-100) 100 * If Blood Sugar is LESS THAN 150, DO NOT TAKE ANY: insulin detemir (U-100) 100 Other Notes If you have any questions please call us at [phone] or [phone] or [phone] or [phone]
--- NOTE | 2018-04-19 11:26 | Anesthesiology Consultation ---
Date of Service April 19, 2018 Assessment & Plan (1) Encounter for pre-operative examination: Chart Review Chart Review: Acceptable Risk for Surgery and Patient seen in Pre Admission Testing Consults Requested medical & cardiac (Dr. Ricky Schultz (04/24)) Discussed chart with Dr. Camp, who would like patient to see cardiology due to his multiple co-morbidities. Patient called and notified and requested to see someone [place] [facility] saw PCP on 04/24. PCP increased Levemir to 32 units BID and NovoLog to 14 units with meals due to poorly controlled diabetes. He also ordered preoperative PFTs, which were done 04/25. Patient was also seen by cardiology on 04/28, who stated that "Patient is a low to intermediate cardiac risk for his upcoming lumbar spinal surgery. Patient was advised to take his usual doses of amlodipine, metoprolol, and his inhalers the morning of surgery. He was advised to hold Losartan on the day of surgery. There is no need for further cardiac workup at this time." Teaching & Discussion Pre-Anesthesia Teaching/Discussion Notes: Instructed NPO after midnight before surgery, except medications with 15 cc of water. Medication instructions provided according to the PAT guidelines. History Surgery Operation Date: 05/05/18 07:45 Proposed Procedures p L2-S1 Decompression and Fusion - Sarwat Sutton DO Height/Weight Height: 6 ft Weight: 106.4 kg Allergies Allergy/AdvReac Type Severity Reaction Status Date / Time hydrocodone AdvReac Unknown constipatio Verified 04/12/18 08:30 n Medications Home Medications Medication Instructions Recorded Confirmed Last Taken amlodipine 2.5 mg tablet 2.5 mg PO QAM 12/08/17 04/12/18 04/11/18 aspirin 81 mg tablet,delayed 81 mg PO DAILY 12/08/17 04/12/18 04/11/18 release bupropion HCl SR 200 mg tablet,12 200 mg PO BID ea 12/08/17 04/12/18 04/11/18 hr sustained-release fluticasone 250 mcg-salmeterol 50 1 inha INH DAILY 12/08/17 04/12/18 mcg/dose blistr powdr for inhalation gabapentin 300 mg capsule 300 mg PO TID 12/08/17 04/12/18 04/11/18 insulin detemir (U-100) 100 25 units SQ BID 12/08/17 04/12/18 04/11/18 unit/mL subcutaneous solution ipratropium 20 mcg-albuterol 100 1 puffs INH QID PRN 12/08/17 04/12/18 Unknown mcg/actuation mist for inhalation losartan 50 mg tablet 50 mg PO QAM 12/08/17 04/12/18 04/11/18 metformin 1,000 mg tablet 1,000 mg PO BID 12/08/17 04/12/18 04/11/18 metoprolol succinate ER 50 mg 50 mg PO QAM 12/08/17 04/12/18 04/11/18 tablet,extended release 24 hr sertraline 50 mg tablet 50 mg PO QAM 12/08/17 04/12/18 04/11/18 tiotropium bromide 18 mcg capsule 1 cap INH BID PRN inha 12/08/17 04/12/18 Unknown with inhalation device insulin aspart U-100 100 unit/mL 10 units SQ TIDM ml 12/12/17 04/12/18 subcutaneous pen Calcium 1 dose PO DAILY 04/12/18 04/12/18 Unknown multivitamin with minerals [Daily 1 tab PO QAM 04/19/18 04/19/18 Unknown Multivitamin-Minerals] Past Medical History Medical History Asthma (Acute) NO RECENT FLARE UPS COPD (chronic obstructive pulmonary disease) (Acute) Diabetes (Acute) High blood pressure (Acute) High cholesterol (Acute) Anxiety and depression History of bone cancer NO TX FOR/LAST SCAN 1 MON AGO...CLEAR History of kidney stones History of seizure APR 2017 - SUGAR DROPPED TO 20... ([place]) Prostate cancer "SLOW GROWING" Sleep apnea CPAP Spinal stenosis Past Surgical History Surgical History H/O nephrolithotomy with removal of calculi (Acute) H/O repair of left rotator cuff (Acute) OPEN H/O repair of right rotator cuff (Acute) SCOPE Hx of cholecystectomy (Acute) H/O bilateral cataract extraction H/O removal of cyst LEFT ELBOW History of colonoscopy History of hernia repair BILAT INGUINAL (1982) Past Anesthesia History No Hx of Anesthesia Complications and No Family Hx of Anesthesia Complications History of PONV No Motion Sickness Screening History of Motion Sickness: No Social History Smoking Status: Former smoker tobacco type: cigarettes, pipe, cigars and smokeless tobacco Smoking cigarettes per day: SMOKED 1-2 PPD X55 YEARS Do You Dip or Chew Tobacco: No (HX OF , NONE CURRENT) Smoking End Date: QUIT 4-5 YR AGO Hx Alcohol Use: No Alcohol type: beer alcohol intake frequency: holidays/special occasions only Hx Substance Use: No substance use type: does not use Exercise / Class Metabolic Activity III < 4 Walking/Shop/Light housework (Tries to help with housework. Can slowly walk up stairs, but has to sit to come down stairs. Gets SOB with stairs. Denies CP.) Review of Systems Patient denies chest pain, reflux, cough, palpitations. +SOB/DAN (COPD) +joint pain (back, knees) +wheezing (COPD - relieved with inhalers) Physical Exam Vital Signs BP: 113/70 P: 86 R: 16 T: 97.9 SPO2: 95% on RA ENMT Thyromental Distance: > or= 3.5 Finger Breadths (4) Mallampati Class: I Upper partial Neck normal visual inspection, trachea midline and + facial hair (Advised); neck extension not limited Mild lymphadenopathy Respiratory normal respiratory effort Auscultation: lungs clear to auscultation bilaterally Cardiovascular Rate/Rhythm: regular rate and regular rhythm Heart Sounds: no murmur Vessels: no carotid bruit Neurologic moves all extremities Psychiatric Orientation: alert and oriented x 3 Testing Electrocardiogram Date: 05/06/17 Findings: + NSR @ (61) and + no change from (11/24/13) Chest X-Ray Date: 04/19/18 Findings: + NAD Echocardiogram Date: 09/09/16 EF: 66% LV Function: normal Other Findings: + LVH (mild concentric) and + diastolic dysfunction (Grade I - Mildly abnormal) Valvular Disease: + no significant valvular disease Mild MR. Stress Test Date: 04/28/18 Type: DSE Findings: + WNL Resting EF: 60-65% Resting RWMA: + none Valvular Disease: no significant valvular disease Negative Dobutamine stress echo and ECG for ischemia at 89% MPHR. Appropriate BP response.. Intermittent junctional rhythm during dobutamine infusion. No chest pain reported. Moderate concentric LVH. Type I diastolic dysfunction. Pulmonary Function Test Date: 04/25/18 Findings: + FEV1 pre (1.95 (57% pred)), + FEV1 post (2.16 (63% pred)) and + responds to Bronchodilators Spirometry demonstrates reduced FEV1 and FVC with a normal obstruction index. This pattern may be seen with restrictive disease, air trapping, obesity, or suboptimal effort. There was a significant bronchodilator response in FVC. Laboratory Results 04/19/18 11:02 04/19/18 11:02 Blood Type A Positive 04/19/18 11:02 Antibody Screen NEGATIVE 04/19/18 11:02 PT 12.2 Seconds (9.0-12.0) H 04/19/18 11:02 INR 1.2 (0.9-1.1) H 04/19/18 11:02 APTT 23.6 Seconds (21.0-31.0) 04/19/18 11:02 Hemoglobin A1c 10.3 % (4.5-5.6) H 04/19/18 11:02 Urine Color Yellow 04/19/18 Unknown Urine Appearance Clear (Clear) 04/19/18 Unknown Urine pH 5.0 (4.5-7.5) 04/19/18 Unknown Ur Specific Ten Sleep 1.026 (1.000-1.030) 04/19/18 Unknown Urine Protein Negative (Negative) 04/19/18 Unknown Urine Glucose (UA) Trace (Negative) H 04/19/18 Unknown Urine Ketones Negative (Negative) 04/19/18 Unknown Urine Nitrite Negative (Negative) 04/19/18 Unknown Ur Leukocyte Esterase Negative (Negative) 04/19/18 Unknown Urine WBC (Auto) 1-5 /hpf (0-5) 04/19/18 Unknown Urine RBC (Auto) 10-30 /hpf (0-4) H 04/19/18 Unknown U Hyaline Cast (Auto) 1-5 /lpf (0-5) 04/19/18 Unknown U Epithel Cells (Auto) 20-30 /lpf (0-5) H 04/19/18 Unknown Urine Bacteria (Auto) Negative (Negative) 04/19/18 Unknown Surgeon's office notified of elevated HgbA1C.
[2018-04-19 12:03] LABS: Basophils # (auto) 0.03 K/uL (0-0.2); Basophils % (auto) 0.4 %; Eosinophils # (auto) 0.23 K/uL (0-0.5); Eosinophils % (auto) 3.3 %; Hematocrit (blood only) 39.5 % (42-52); Hemoglobin 13.2 g/dL (14.0-18.0); Immature Granulocytes # (auto) 0.01 K/uL (0.00-0.02); Immature Granulocytes % (auto) 0.1 %; Lymphocytes # (auto) 2.08 K/uL (1.2-3.4); Lymphocytes % (auto) 29.8 %; Mean Corpuscular Hgb Conc 33.4 g/dL (32-36); Mean Corpuscular Volume 96.3 fL (80-100); Mean Platelet Volume 10.9 fL (7.4-10.4); Monocytes # (auto) 0.47 K/uL (0.11-0.59); Monocytes % (auto) 6.7 %; Neutrophils # (auto) 4.16 K/uL (1.4-6.5); Neutrophils % (auto) 59.7 %; Platelet Count 182 K/uL (130-400); RDW Coefficient of Variation 12.8 % (11.5-14.5); RDW Standard Deviation 44.5 fL (36.4-46.3); White Blood Count 6.98 K/uL (4.8-10.8)
[2018-04-19 12:07] LABS: Estimated Average Glucose 249 mg/dl
[2018-04-19 12:10] LABS: Appearance Urine Clear (Clear); Bacteria Urine Automated Negative (Negative); Bilirubin Urine Negative (Negative); Color Urine Yellow; Epithelial Cell Urine Auto 20-30 /lpf (0-5); Glucose Urine UA Trace (Negative); Ketones Urine Negative (Negative); Leukocyte Esterase Urine Negative (Negative); Nitrite Urine Negative (Negative); Protein Urine Negative (Negative); Specific Gravity Urine 1.026 (1.000-1.030); Urobilinogen Urine Negative (Negative)
--- NOTE | 2018-04-19 12:15 | XRay Report ---
XR chest Pre-admission PA/Lat CLINICAL HISTORY: Preoperative chest COMPARISON STUDY: October 2014 FINDINGS: The cardiac and mediastinal contours are normal. There is no evidence of focal pulmonary co nsolidation. There is no evidence of failure. No pleural effusions are visualized.[ IMPRESSION: No active disease in the chest. Electronically signed by: Alistair Iverson M.D. 04/19/2018 12:14 PM
[2018-04-19 12:44] LABS: BUN Creatinine Ratio 17.7 (10-20); Calcium 9.4 mg/dl (8.5-10.1); Creatinine Clr Calc Pharmacy 64.1 ml/min; Est GFR (African American) 60.6; Est GFR (Non-African American) 52.3; Potassium 4.5 mmol/L (3.5-5.1)
[2018-04-19 12:58] LABS: INR 1.2 (0.9-1.1); Partial Thromboplastin Ratio 0.9; Partial Thromboplastin Time 23.6 Seconds (21.0-31.0); Prothrombin Time 12.2 Seconds (9.0-12.0)
[2018-05-05] MEDS ORDERED: ACETAMINOPHEN 500 MG TAB PO SCH (06:00)
[2018-05-05] MEDS ORDERED: LR 15ML/HR IV SCH (06:00)
[2018-05-05] MEDS ORDERED: CeleBREX 200 MG CAP PO SCH (06:00)
[2018-05-05] MEDS ORDERED: CEFAZOLIN 2000MG 2,000 MG/15 ML SYR IV SCH (06:00)
[2018-05-05] MEDS ORDERED: GABAPENTIN 300 MG PO SCH (06:00)
[2018-05-05] MEDS ORDERED: MIDAZOLAM HCL 1 MG/ML 2ML VIAL ONE (06:32)
[2018-05-05] MEDS ORDERED: DEXAMETHASONE SOD INJ 4 MG/ML VIAL ONE (06:32)
[2018-05-05] MEDS ORDERED: fentaNYL citrate 100 MCG/2 ML VIAL ONE ×7 (06:32→10:36)
[2018-05-05] MEDS ORDERED: ePHEDrine sulfate 50 MG/ML SYR ONE (06:32)
[2018-05-05] MEDS ORDERED: ROCURONIUM BROMIDE 10 MG/ML 5 ML VIAL ONE (06:32)
[2018-05-05] MEDS ORDERED: ONDANSETRON INJ 2 MG/ML 2 ML VIAL ONE (06:32)
[2018-05-05] MEDS ORDERED: HYDROmorphone INJ 2 MG/ML SYR/VIAL ONE (06:32)
[2018-05-05] MEDS ORDERED: GLYCOPYRROLATE 0.2 MG/ML VIAL ONE (06:32)
[2018-05-05] MEDS ORDERED: PROPOFOL IV EMULSION 10 MG/ML 20 ML VIAL IV ONE (06:32)
[2018-05-05] MEDS ORDERED: LIDOCAINE HCL 2% 2 ML VIAL/AMP(20MG/ML) INFIL ONE (06:32)
[2018-05-05] MEDS ORDERED: NEOSTIGMINE METHYLSULFATE 1 MG/ML 10ML VIAL ONE (06:32)
[2018-05-05] MEDS ORDERED: PHENYLEPHRINE 100MCG/ML 5ML SYR ONE (06:32)
[2018-05-05] MEDS ORDERED: BACITRACIN INJ 50,000 UNIT VIAL ONE (06:55)
[2018-05-05] MEDS ORDERED: BUPIVACAINE/EPINEPHRINE 0.5% MPF 1:200,000 30 ML VIAL ONE (06:55)
[2018-05-05] MEDS ORDERED: ALBUMIN HUMAN 5% 12.5 GM/250 ML VIAL IV ONE ×2 (06:57→09:32)
--- NOTE | 2018-05-05 07:36 | History & Physical Bridge Note ---
Date of Service May 05, 2018 History & Physical Bridge Note I have examined the patient, reviewed the History & Physical and in the interval since the performance of the History & Physical I have noted the following changes of clinical significance: no changes noted
--- NOTE | 2018-05-05 07:38 | History & Physical Report ---
Date of Service May 05, 2018 Assessment & Plan (1) Neurogenic claudication due to lumbar spinal stenosis: L2-S1 decompression fusion Present on Admission?: Yes History of Present Illness Chief Complaint: Back and leg pain Primary Care Provider: Ricky Schultz MD This is a 68-year-old male with chronic persistent back and bilateral leg pain. After failing extensive course of nonoperative care is here for surgical intervention. Allergies Allergy/AdvReac Type Severity Reaction Status Date / Time hydrocodone AdvReac Unknown constipatio Verified 05/05/18 06:16 n Home Medications Home Medications Medication Instructions Recorded Confirmed Type amlodipine 2.5 mg tablet 2.5 mg PO QAM 12/08/17 04/12/18 History aspirin 81 mg tablet,delayed 81 mg PO DAILY 12/08/17 04/12/18 History release bupropion HCl SR 200 mg tablet,12 200 mg PO BID ea 12/08/17 04/12/18 History hr sustained-release fluticasone 250 mcg-salmeterol 50 1 inha INH DAILY ea 12/08/17 04/12/18 History mcg/dose blistr powdr for inhalation gabapentin 300 mg capsule 300 mg PO TID 12/08/17 04/12/18 History insulin detemir (U-100) 100 25 units SQ BID 12/08/17 04/12/18 History unit/mL subcutaneous solution ipratropium 20 mcg-albuterol 100 1 puffs INH QID PRN 12/08/17 04/12/18 History mcg/actuation mist for inhalation losartan 50 mg tablet 50 mg PO QAM 12/08/17 04/12/18 History metformin 1,000 mg tablet 1,000 mg PO BID 12/08/17 04/12/18 History metoprolol succinate ER 50 mg 50 mg PO QAM 12/08/17 04/12/18 History tablet,extended release 24 hr sertraline 50 mg tablet 50 mg PO QAM 12/08/17 04/12/18 History tiotropium bromide 18 mcg capsule 1 cap INH BID PRN inha 12/08/17 05/05/18 History with inhalation device insulin aspart U-100 100 unit/mL 10 units SQ TIDM ml 12/12/17 04/12/18 History subcutaneous pen Calcium 1 dose PO DAILY 04/12/18 04/12/18 History multivitamin with minerals [Daily 1 tab PO QAM 04/19/18 04/19/18 History Multivitamin-Minerals] Past Med/Surg History Social History marital status: Current Living Situation: Spouse current occupational status: retired Other Information That Helps Us Care for You: No Feels Safe at Home: Yes Smoking Status: Former smoker Tobacco Type: cigarettes, pipe, cigars and smokeless tobacco Cigarettes per Day: SMOKED 1-2 PPD X55 YEARS Do You Dip or Chew Tobacco: No (HX OF , NONE CURRENT) Smoking End Date: QUIT 4-5 YR AGO Hx Alcohol Use: No Hx Substance Use: No Beliefs That Will Affect Care: None Preferred Language: Pashto Communication Ability: Effective Motor Vehicle Licence Examiner Required: No Physical Exam 2 Vital Signs (Past 24 Hours): Last Vital Signs Temp 36.8 C 05/05/18 06:17 Pulse 92 H 05/05/18 06:17 Resp 18 05/05/18 06:17 BP 112/71 05/05/18 06:17 Pulse Ox 97 05/05/18 06:17 Results & Data Medications Administered Acetaminophen (Tylenol) 1,000 mg PO PREOP RADHA Stop: 05/05/18 18:00 Last Admin: 05/05/18 06:37 Dose: 1,000 mg Celecoxib (Celebrex) 200 mg PO PREOP RADHA Stop: 05/05/18 18:00 Last Admin: 05/05/18 06:38 Dose: 200 mg Gabapentin (Neurontin) 300 mg PO PREOP RADHA Stop: 05/05/18 18:00 Last Admin: 05/05/18 06:38 Dose: Not Given Lactated Ringer's (Lr) 1,000 mls @ 15 mls/hr IV .Q24H RADHA Stop: 05/06/18 05:59 Last Admin: 05/05/18 06:51 Dose: 15 mls/hr
[2018-05-05] MEDS ORDERED: ONDANSETRON INJ 2 MG/ML 2 ML VIAL IV PRN ×2 (08:21→13:17)
[2018-05-05] MEDS ORDERED: fentaNYL citrate 100 MCG/2 ML VIAL IV PRN (08:21)
[2018-05-05] MEDS ORDERED: ATROPINE SULFATE 0.1 MG/ML 10ML SYR IV PRN (08:21)
[2018-05-05] MEDS ORDERED: HYDROmorphone INJ 2 MG/ML SYR/VIAL IV PRN (08:21)
[2018-05-05] MEDS ORDERED: ePHEDrine sulfate 50 MG/ML AMP IV PRN (08:21)
[2018-05-05] MEDS ORDERED: PROMETHAZINE HCL 6.25 MG in SODIUM CHLORIDE 0.9% 50 ML IV PRN (08:21)
[2018-05-05] MEDS ORDERED: FLOSEAL HEMOSTATIC MATRIX 10ML TOP ONE (08:30)
[2018-05-05 10:27] LABS: Hematocrit (blood only) 29.7 % (42-52); Hemoglobin 10.2 g/dL (14.0-18.0)
[2018-05-05] MEDS ORDERED: CEFAZOLIN 250 MG/ML 1 GM VIAL ONE (10:36)
[2018-05-05] MEDS ORDERED: CALCIUM CHLORIDE 10% 10 ML SYR IV ONE (10:40)
--- NOTE | 2018-05-05 11:17 | Fluoroscopy Report ---
FL lumbar spine 2-3V CLINICAL HISTORY: L2-S1 DECOMPRESSION AND FUSION COMPARISON STUDY: None FLUOROSCOPY TIME: 40 seconds NUMBER OF FLUOROSCOPIC IMAGES: 5 FINDINGS: Operative findings consistent with an L2-S1 laminectomy and fusion. Disc spaces are present at L4-L5 and L5-S1. IMPRESSION: L2-S1 laminectomy and fusion. The above report was generated using voice recognition software. It may contain grammatical, syntax or spelling errors. Electronically signed by: Michele Mancera M.D. 05/05/2018 11:16 AM
[2018-05-05 11:27] LABS: Hematocrit (blood only) 29.5 % (42-52); Hemoglobin 9.8 g/dL (14.0-18.0)
--- NOTE | 2018-05-05 11:27 | Operative Report ---
Post Operative Report Pre & Post Diagnosis Operation Date: 05/05/18 07:45 Pre-Op Diagnosis: LUMBAR SPINAL STENOSIS W/OUT NEUROGENIC CLAUDICATION Post-Op Diagnosis: LUMBAR SPINAL STENOSIS W/OUT NEUROGENIC CLAUDICATION Procedure Operation Date: 05/05/18 07:45 Actual Procedures #1 lumbar depression medial facetectomy foraminotomy L2-3 L3-4 L4-5 L5-S1. #2 posterior spinal fusion L2-3 L3-4 L4-5 L5-S1. #3 placement posterior segmental instrumentation L2-S1 with cross-link. #4 interbody fusion L4-5 L5-S1. #5 placement of titanium 15 x 26 mm cage L4-5 and L5-S1. #6 placement of local autograft and posterior gutters. #7 placement of infuse collagen sponge mass graft local autograft in the posterior gutters and ostomy up in interbody space. Surgeon Sarwat Sutton DO Library Supervisor None Estimated Blood Loss 1,700 Findings Consistent with Post-Op Diagnosis Specimens None Description of Procedure Patient was met with preoperatively case discussed all questions addressed. After informed consent obtained patient was taken to the operative suite underwent intubation placed in a prone position the Charly table on top of the Ozzy frame. All bony prominences well-padded eyes inspected to ensure no external pressure placed upon him. This point the lumbar spine was prepped and draped in normal sterile fashion. Sharp dissection with the assistance of Bovie cautery was performed down to and exposing the lamina and transverse processes of L2 L3-L4-L5 and sacral ala bilaterally. From a caudal cephalad fashion complete laminectomy of L5 L4 L3 and L2 was performed including medial facetectomies foraminotomies addressing severe stenosis. After this complete pedicle screws placed in L2-L3-L4 L5-S1 levels bilaterally with assistance of fluoroscopy the purposes dean placed. The transforaminal portion right complete discectomy of L5-S1 was performed and curetted to subcortical bleeding bone and a 15 x 26 mm titanium cage filled with osteo-amp bone graft tapped in position. I then proceeded to L3-4. [address] of a transforaminal approach complete discectomy performed in plate curetted to subcortical bleeding bone and again a 15 x 26 mm titanium cage filled with ostium bone graft tapped in position. The rods were then compressed locked in final position bilaterally. Cross-link locked into position. The transverse processes bur to subcortical bleeding bone at L2 L3-L4-L5 and sacral ala and infuse collagen sponge master graft local autograft placed in the posterior gutters. 15 round PRABHJOT drain inserted. Incision was then closed with 1 Vicryl fascia 2-0 Vicryl subcutaneously seen 4- 0 Monocryl for final skin closure Steri-Strip sterile dressings placed. Patient will continue to PACU stable addition. I attest to the content of the Intraoperative Record and any orders documented therein. Any exceptions are noted below.
--- NOTE | 2018-05-05 13:01 | Anesthesiology Progress Note ---
Date of Service May 05, 2018 Anesthesia Post Procedure Vital Signs Vital Signs: Temp Pulse Pulse Resp BP Pulse Ox 05/05/18 12:19 37.1 C 93 H 15 147/83 H 96 05/05/18 12:10 37.1 C 94 H 15 152/79 H 95 05/05/18 12:00 92 H 16 165/82 H 100 05/05/18 11:50 95 H 14 169/88 H 100 05/05/18 11:40 94 H 15 169/104 H 100 05/05/18 11:30 36.8 C 94 H 14 158/89 H 96 05/05/18 06:17 36.8 C 92 H 18 112/71 97 Pain Intensity Medial Back: Pain Intensity: 8 Notes Mental Status: alert / awake / arousable Patient Amnestic to Procedure: Yes Nausea / Vomiting: adequately controlled Pain: adequately controlled Airway Patency, RR, SpO2: stable & adequate BP & HR: stable & adequate Hydration State: stable & adequate Anesthetic Complications: no major complications apparent Notes: Patient was transfused 1u RBCs intraoperatively for >1L of blood loss with continued surgical oozing. He remained hemodynamically stable throughout.
[2018-05-05] MEDS ORDERED: PROMETHAZINE HCL 12.5 MG in SODIUM CHLORIDE 0.9% 50 ML IV PRN (13:17)
[2018-05-05] MEDS ORDERED: IPRATROPIUM BROMIDE/ALBUTEROL respimat INH INH PRN (13:17)
[2018-05-05] MEDS ORDERED: DO NOT ADMINISTER FLU VACCINE PRN (13:17)
[2018-05-05] MEDS ORDERED: MAGNESIUM HYDROXIDE SUSP 30 ML UDC PO PRN (13:17)
[2018-05-05] MEDS ORDERED: ALUMINUM/MAGNESIUM SUSP 30 ML UDC PO PRN (13:17)
[2018-05-05] MEDS ORDERED: FAMOTIDINE 20 MG TAB PO PRN (13:17)
[2018-05-05] MEDS ORDERED: METOCLOPRAMIDE HCL INJ 5 MG/ML 2 ML VIAL IV PRN (13:17)
[2018-05-05] MEDS ORDERED: TRAMADOL HCL 50 MG TABLET PO PRN (13:17)
[2018-05-05] MEDS ORDERED: ACETAMINOPHEN 1,000 MG/100 ML VIAL IV PRN (13:17)
[2018-05-05] MEDS ORDERED: ACETAMINOPHEN 500 MG TAB PO PRN (13:17)
[2018-05-05] MEDS ORDERED: LORazepam 0.5 MG/1 ML VIAL IV PRN (13:17)
[2018-05-05] MEDS ORDERED: DO NOT ADMINISTER PNEUMOCOCCAL VACCINE PRN (13:17)
[2018-05-05] MEDS ORDERED: ONDANSETRON 4 MG TAB PO PRN (13:17)
[2018-05-05] MEDS ORDERED: LORazepam 0.5 MG TAB PO PRN (13:17)
[2018-05-05] MEDS ORDERED: TIOTROPIUM BROMIDE 5 PUFF/90 MCG INH INH PRN (13:17)
[2018-05-05] MEDS ORDERED: PHARMACY GLYCEMIC MGMT CONSULT PRN (13:49)
[2018-05-05] MEDS ORDERED: DEXTROSE 50% 50 ML SYRINGE IV PRN (13:50)
[2018-05-05] MEDS ORDERED: GLUCAGON FOR INJ 1 MG VIAL IM PRN (13:50)
[2018-05-05] MEDS ORDERED: CARBOHYDRATES FOR HYPOGLYCEMIA PO PRN (13:50)
[2018-05-05] MEDS ORDERED: GLUCOSE 10 TABS/TUBE PO PRN (13:50)
[2018-05-05] MEDS ORDERED: GLUCOSE 40% GEL 15 GM TUBE PO PRN (13:50)
[2018-05-05] MEDS ORDERED: INSULIN REGULAR 250 UNITS in SODIUM CHLORIDE 0.9% 247.5 ML IV SCH (14:00)
[2018-05-05] MEDS ORDERED: INSULIN DETEMIR FLEXPEN/FLEX TOUCH 100 UNITS/ML 3ML SC ONE (14:30)
--- NOTE | 2018-05-05 14:44 | Pharmacy Report ---
Glycemic Control Consultation - Date of Service May 05, 2018 - Scope Scope: Glycemic Pharmacist consulted for glycemic control and to write orders per [facility] inpatient glycemic control protocol - Objective Weight: 105.8 kg Accuchecks BSG (last 24hrs): 05/05/18 05/05/18 05/05/18 06:35 13:30 13:35 POC Glucose 169 H 356 H* 363 H* HbA1c: Hemoglobin A1c 10.3 % (4.5-5.6) H 04/19/18 11:02 - Recent Pertinent Medications Outpatient Anti-diabetic Regimen: * Levemir 32 units SQ BID * Novolog 14 units SQ TIDM * Metformin 1,000mg PO BIDM Risk Factors for Insulin Resistance: * Steroids: DXM in OR * Recent Surgery * Diet * Baseline poor control/elevated A1c - Assessment & Plan Assessment & Plan: ASSESSMENT: * 68yo T2DM male with poor outpatient control per recent A1c > 10% * Pt with SEVERE hyperglycemia post-operatively secondary to poor outpatient control coupled with DXM given in OR * Spoke with patient re: glycemic control. His outpatient PCP recently increased his insulin regimen. He is agreeable to IV insulin infusion post- operatively. He did not take his insulin this morning. * Goal is to maintain BSGs <200 mg/dl ideally <150 mg/dl to prevent post-op infectious complications. PLAN FOR INPATIENT GLYCEMIC CONTROL: * Starting IV insulin infusion per protocol * Start infusion at 0.1 units/kg/hr and then titrate per protocol * Goal Range 110 - 140 mg/dl * Will DC IV insulin infusion when BSG <180 mg/dl AND rate is below 2 units/ hr. Both criteria needs to be met. * Holding outpatient oral diabetes medications * Basal insulin * Levemir 50 units SQ x 1 dose now then resume outpatient dosing of Levemir 32 units SQ BID tomorrow morning. May need to adjust this dosing based on BSG trends. Typically reduced outpatient insulin dosing is needed for controlled CHO intake in house. * Bolus insulin * NovoLog per scale ACHS or Q6hrs while NPO * Goal Range: Low 110 mg/dL - High 140 mg/dL * Correction Factor: 15 mg/dL/unit * Nutritional / Prandial insulin per carb ratio of 1 unit per 5 grams CHO consumed Looking ahead to discharge: * Most likely no changes will be needed despite elevated A1c. PCP just increased outpatient doses and will f/u with outpatient provider for further adjustments. * Please note that the plan above was derived based on current level of insulin resistance and hospital stress. These recommendations are appropriate for inpatient admission only. Plan of care upon discharge will need to be reassessed to avoid potential outpatient hypo/hyperglycemia. Thank you.
--- NOTE | 2018-05-05 15:12 | Hospitalist Consultation ---
Date of Consultation May 05, 2018 Assessment & Plan (1) Diabetes mellitus: Hemoglobin A1c is 10.3 with pre-operative testing.Urine microalbumin in September 2017 was 20.2. Previous hemoglobin A1c was 7.7 in 2017 and 7.6 in 2018. Patient reports that he went through a period of noncompliance but recently had medications adjusted by Dr. Schultz. Patient also reports that due to back pain he has not been exercising and has been fairly sedentary Patient started on an insulin drip as well as continue with Levemir Pharmacy consult for glycemic control has been placed and glycemic control pharmacist is following. 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 Schultz his PCP Recently treated for COPD exacerbation and completed a steroid taper approximately 6 weeks ago. No chronic, long-term steroids as an outpatient Patient does have some minimal scattered wheezes on examination We will start as needed nebulizer treatments Outpatient medications include Spiriva and Combivent Respimat. The patient is not taking a steroid inhaler. He is no longer on a long-acting beta agonist. Previously was on Advair but reports no longer taking it Per outpatient record patient is never had pulmonary function tests but was scheduled to get spirometry testing April 24, 2018 at [facility] Continue to monitor per protocol (3) Coronary artery disease: Patient denies any history of coronary artery disease. However, patient is on aspirin and metoprolol. He had a recent dobutamine stress test which was normal Hypertension is well controlled We will continue with Toprol and aspirin as well as losartan No lisinopril secondary to cough (4) Lumbar spinal stenosis: Status post lumbar decompression and fusion on 05/[address] Sutton, as described above Continue management per orthospine (5) Hypertension: Patient is currently hemodynamically stable Home medications include amlodipine 2.5 mg daily and losartan 50 mg daily. Patient also takes metoprolol ER 50 mg daily and aspirin 81 mg daily Continue with home medications and monitor per protocol Patient denies any chest pain or tightness. He has no shortness of breath. (6) Hypercholesterolemia: Continue statin Continue with AHA diet (7) History of vaccination: Influenza vaccination 01/12/2018 PCV 09/11/2014 PPSV series 1 04/09/2004, series 2 12/28/2009 Prevnar 13 08/2014 Tdap 09/11/2014 (8) Peripheral neuropathy: Gabapentin 300 mg p.o. 3 times daily Further management per spine Ortho (9) Depression: Continue Wellbutrin SR and sertraline home doses (10) DVT prophylaxis: Thigh-high SCDs Ambulate per spine ortho Aspirin 81 mg daily Chemical prophylaxis per spine ortho Thank you for including us in the care of this patient. Please refer to Dr. Whitlock's addendum for further recommendations. Supervising Physician Co-Signing Physician Notes PA Supervision Note: I personally saw and examined the patient. I verified all bonds points and agree with JALIL Banks with the following exceptions and/or additions: Patient doing very well postoperatively. Denies chest pain or shortness of breath over his usual, denies nausea and is tolerating p.o. Blood sugars are coming down nicely on the insulin drip. Back pain is controlled. I confirmed that his sertraline is actually 100 mg instead 50 mg, he is indeed taking atorvastatin 20 mg daily, and is no longer taking Advair-the home med rec was corrected and changes were made to the inpatient meds Vitals reviewed Gen: AAOx3, NAD HEENT: Anicteric sclerae, EOMI CV: RRR no mgr nl S1S2 Pulm: CTAB no wcr Abd: +BS soft NT ND no masses or hernias Ext: No edema, 2+ DP pulses Skin: No rashes, warm/dry Patient is a 68-year-old male with history as above here for lumbar decompression and fusion, doing well postoperatively. Did have a significant EBL -Check CBC in the morning and transfuse as needed -Follow blood pressures and hold antihypertensives if needed in the morning -Follow BMP in the morning -Appreciate glycemic pharmacy management of insulin drip in the setting of hyperglycemia secondary to corticosteroids -As per unintentional weight loss, could have been secondary to significant hyperglycemia and uncontrolled diabetes, otherwise defer outpatient workup to PCP History of Present Illness Reason for Consultation: Postoperative care for hyperglycemia secondary to diabetes mellitus type 2 Requesting Physician: Dr. Sutton Attending Physician: Sarwat Sutton, History of Present Illness Attending:Dr. Whitlock This is a 68-year-old male that presents for elective lumbar surgery with Dr. Sutton for chronic pain secondary to lumbar spinal stenosis without neurogenic claudication. Patient underwent medial facetectomy with foraminotomy of L2-3, L3-4, L4-L5, L5-S1. He also underwent posterior spinal fusion of L2-3, L3-4, L4-5, L5-S1. And also had hardware including cages placed to those areas. Patient tolerated the procedure well and had an estimated blood loss of 1700 mL's. Postoperatively he was found to have bedside glucose of 356 and then 363. A consult was placed for hospital medicine for postoperative care and an insulin drip was started. The patient has a past medical history of benign essential hypertension, CAD, Asthma, COPD, depression, diabetes mellitus type 2 with a hemoglobin A1c of 10.3 , peripheral neuropathy in the feet, hypercholesterolemia, obesity with a BMI of 32.5, history of tobacco abuse with a 56-agkh-nycg history. (Patient quit smoking 6 years ago) Patient currently does not have any acute complaints. Pain is well controlled when sitting in bed. He has not been ambulating as of yet. He did tolerate his lunch without nausea or vomiting. He denies any fever, chills, sweats, rigors. The patient does have a history of peripheral neuropathy in the lower extremities which is worse at night. It should be noted that the patient has a history of exercising on a regular basis. Secondary to back pain is not exercise for the last several months. The patient does report a weight loss of approximately 30 pounds over the last 6 months which was unintentional. Allergies Allergy/AdvReac Type Severity Reaction Status Date / Time MICKEY Inhibitors AdvReac Mild Cough Unverified 05/05/18 15:19 hydrocodone AdvReac Unknown constipatio Verified 05/05/18 06:16 n Home Medications Home Medications Medication Instructions Recorded Confirmed Type amlodipine 2.5 mg tablet 2.5 mg PO QAM 12/08/17 04/12/18 History aspirin 81 mg tablet,delayed 81 mg PO DAILY 12/08/17 04/12/18 History release bupropion HCl SR 200 mg tablet,12 200 mg PO BID ea 12/08/17 04/12/18 History hr sustained-release gabapentin 300 mg capsule 300 mg PO TID 12/08/17 04/12/18 History insulin detemir (U-100) 100 32 units SQ BID 12/08/17 05/05/18 History unit/mL subcutaneous solution ipratropium 20 mcg-albuterol 100 1 puffs INH QID PRN 12/08/17 04/12/18 History mcg/actuation mist for inhalation losartan 50 mg tablet 50 mg PO QAM 12/08/17 04/12/18 History metformin 1,000 mg tablet 1,000 mg PO BID 12/08/17 04/12/18 History metoprolol succinate ER 50 mg 50 mg PO QAM 12/08/17 04/12/18 History tablet,extended release 24 hr tiotropium bromide 18 mcg capsule 1 cap INH BID PRN inha 12/08/17 05/05/18 History with inhalation device insulin aspart U-100 100 unit/mL 14 units SQ TIDM ml 12/12/17 05/05/18 History subcutaneous pen Calcium 1 dose PO DAILY 04/12/18 04/12/18 History multivitamin with minerals [Daily 1 tab PO QAM 04/19/18 04/19/18 History Multivitamin-Minerals] atorvastatin 20 mg PO QAM 05/05/18 05/05/18 History sertraline 100 mg PO QAM 05/05/18 05/05/18 History Patient History Medical History Depression Obesity (BMI 30.0-34.9) Peripheral neuropathy Unintentional weight loss of 10% body weight within 6 months Asthma (Acute) NO RECENT FLARE UPS COPD (chronic obstructive pulmonary disease) (Acute) Diabetes (Acute) High blood pressure (Acute) High cholesterol (Acute) Anxiety and depression History of bone cancer NO TX FOR/LAST SCAN 1 MON AGO...CLEAR History of kidney stones History of seizure APR 2017 - SUGAR DROPPED TO 20... ([place]) Prostate cancer "SLOW GROWING" Sleep apnea CPAP Spinal stenosis Surgical History H/O nephrolithotomy with removal of calculi (Acute) H/O repair of left rotator cuff (Acute) OPEN H/O repair of right rotator cuff (Acute) SCOPE Hx of cholecystectomy (Acute) H/O bilateral cataract extraction H/O removal of cyst LEFT ELBOW History of colonoscopy History of hernia repair BILAT INGUINAL (1982) Social History marital status: Current Living Situation: Spouse current occupational status: retired Other Information That Helps Us Care for You: No Feels Safe at Home: Yes Smoking Status: Former smoker Tobacco Type: cigarettes, pipe, cigars and smokeless tobacco Cigarettes per Day: SMOKED 1-2 PPD X55 YEARS Do You Dip or Chew Tobacco: No (HX OF , NONE CURRENT) Smoking End Date: QUIT 4-5 YR AGO Hx Alcohol Use: No Hx Substance Use: No Beliefs That Will Affect Care: None Communication Ability: Effective Review of Systems A total of 12 systems was reviewed and is negative other than as listed above in the HPI Physical Exam 2 Vital Signs (Past 24 Hours): Last Vital Signs Temp 36.8 C 05/05/18 14:58 Pulse 89 05/05/18 14:58 Resp 18 05/05/18 14:58 BP 118/74 05/05/18 14:58 Pulse Ox 98 05/05/18 14:58 Physical Exam: GENERAL : No acute distress. Pleasant EYES: No icterus, gaze conjugate. Pupils equal round and reactive to light NOSE: No evidence of epistaxis. No evidence of septal breech MOUTH: No lesions or candidiasis. Poor dental care. Loss of teeth. No significant halitosis NECK: Supple. No carotid bruits appreciated. No stridor appreciated. LUNGS: Generally clear to auscultation with scattered wheezes at the bases. No rales or rhonchi appreciated. HEART: Regular, rate controlled. No appreciation of murmurs gallops or rubs. ABDOMEN: Soft, NT, ND, BS Present EXTREMITIES: No LE edema, pedal pulses intact. Thigh high SCDs in place. NEURO: A&OX3. Strength equal and appropriate to upper and lower extremities bilaterally. PERRL. No focal deficits appreciated Results & Data Laboratory Results Abnormal lab results 05/05/18 05/05/18 05/05/18 Range/Units 05:42 06:35 10:19 Hgb 10.2 L (14.0-18.0) g/dL Hct 29.7 L (42-52) % POC Glucose 169 H (70-99) Crossmatch See Detail 05/05/18 05/05/18 05/05/18 Range/Units 11:15 13:30 13:35 Hgb 9.8 L (14.0-18.0) g/dL Hct 29.5 L (42-52) % POC Glucose 356 H* 363 H* (70-99) Crossmatch Laboratory Tests 04/19/18 05/05/18 05/05/18 11:02 13:30 13:35 POC Glucose 356 H* 363 H* Hemoglobin A1c 10.3 H Diagnostic Findings [place] lumbar spine 2-3V CLINICAL HISTORY: L2-S1 DECOMPRESSION AND FUSION COMPARISON STUDY: None FLUOROSCOPY TIME: 40 seconds NUMBER OF FLUOROSCOPIC IMAGES: 5 FINDINGS: Operative findings consistent with an L2-S1 laminectomy and fusion. Disc spaces are present at L4-L5 and L5-S1. IMPRESSION: L2-S1 laminectomy and fusion. Electronically signed by: Michele Mancera M.D. 05/05/2018 11:16 AM _ (1) Diabetes mellitus Diabetes mellitus type: type 2 Diabetes mellitus fdc insulin use: with fdc use Diabetes mellitus complication status: with hyperglycemia Qualified Code(s): E11.65 - Type 2 diabetes mellitus with hyperglycemia; Z79.4 - longterm (current) use of insulin (2) Hypertension Hypertension type: essential hypertension Qualified Code(s): I10 - Essential (primary) hypertension
[2018-05-05] MEDS: SODIUM CHLORIDE 0.9% 1000ML 1,000 ML IV SCH ×2 (16:06→21:04)
[2018-05-05] MEDS: CEFAZOLIN 2000MG 2,000 MG/15 ML SYR IV SCH (16:13)
[2018-05-05] MEDS: KETOROLAC TROMETHAMINE 15 MG/ML VIAL IV SCH ×2 (16:14→21:06)
[2018-05-05] MEDS: GABAPENTIN 300 MG CAP PO SCH ×2 (16:14→20:39)
[2018-05-05] MEDS ORDERED: INSULIN ASPART 100 UNITS/ML 3 ML PEN SC SCH (16:30)
[2018-05-05] MEDS ORDERED: ALBUT/IPRATROP 3MG/0.5MG NEB 3 ML VIAL NEB PRN (17:11)
[2018-05-05] MEDS: INSULIN ASPART 100 UNITS/ML 3 ML PEN SC SCH ×2 (19:00→21:11)
[2018-05-05] MEDS ORDERED: DC IV INSULIN INFUSION 1 EA DEVI SCH (20:00)
[2018-05-05] MEDS: DOCUSATE SODIUM/SENNA 50/8.6MG TAB PO SCH (20:39)
[2018-05-05] MEDS: BuPROPion SR 100 MG TABCR PO SCH (20:39)
[2018-05-05] MEDS ORDERED: INSULIN DETEMIR SQ SCH (21:00)
[2018-05-06] MEDS: INSULIN ASPART 100 UNITS/ML 3 ML PEN SC SCH ×5 (00:46→20:53)
[2018-05-06] MEDS: CEFAZOLIN 2000MG 2,000 MG/15 ML SYR IV SCH (00:47)
[2018-05-06] MEDS: HYDROmorphone INJ 0.5 MG/0.5 ML SYR IV PRN ×2 (00:58→08:26)
[2018-05-06] MEDS: SODIUM CHLORIDE 0.9% 1000ML 1,000 ML IV SCH (04:16)
[2018-05-06] MEDS: KETOROLAC TROMETHAMINE 15 MG/ML VIAL IV SCH ×2 (04:18→10:12)
[2018-05-06 06:14] LABS: Hematocrit (blood only) 21.3 % (42-52); Hemoglobin 7.2 g/dL (14.0-18.0); Mean Corpuscular Hgb Conc 33.8 g/dL (32-36); Mean Corpuscular Volume 95.5 fL (80-100); Mean Platelet Volume 10.5 fL (7.4-10.4); Platelet Count 115 K/uL (130-400); RDW Coefficient of Variation 13.9 % (11.5-14.5); RDW Standard Deviation 48.6 fL (36.4-46.3); Red Blood Count 2.23 M/uL (4.7-6.1); White Blood Count 11.17 K/uL (4.8-10.8)
[2018-05-06] MEDS: POLYETHYLENE (MIRALAX) 17 GM PACK PO SCH ×3 (06:15→17:15)
[2018-05-06 06:41] LABS: BUN Creatinine Ratio 19.9 (10-20); Creatinine Clr Calc Pharmacy 59.5 ml/min; Est GFR (African American) 56.5; Est GFR (Non-African American) 48.8; Potassium 4.7 mmol/L (3.5-5.1)
[2018-05-06 06:47] LABS: Basophils # (auto) 0.02 K/uL (0-0.2); Basophils % (auto) 0.2 %; Eosinophils # (auto) 0.01 K/uL (0-0.5); Eosinophils % (auto) 0.1 %; Immature Granulocytes # (auto) 0.03 K/uL (0.00-0.02); Immature Granulocytes % (auto) 0.3 %; Lymphocytes # (auto) 1.43 K/uL (1.2-3.4); Lymphocytes % (auto) 12.8 %; Monocytes # (auto) 1.24 K/uL (0.11-0.59); Monocytes % (auto) 11.1 %; Neutrophils # (auto) 8.44 K/uL (1.4-6.5); Neutrophils % (auto) 75.5 %; RBC Morphology Unremarkable
[2018-05-06] MEDS ORDERED: INSULIN ASPART 100 UNITS/ML 3 ML PEN SC SCH (07:30)
[2018-05-06] MEDS: ATORVASTATIN 20 MG TAB PO SCH (08:27)
[2018-05-06] MEDS: SERTRALINE HCL 100 MG TABLET PO SCH (08:27)
[2018-05-06] MEDS: GABAPENTIN 300 MG CAP PO SCH ×3 (08:27→20:28)
[2018-05-06] MEDS: AMLODIPINE BESYLATE 5 MG TAB PO SCH (08:28)
[2018-05-06] MEDS: CEROVITE ADV FORMULA TAB PO SCH (08:28)
[2018-05-06] MEDS: BuPROPion SR 100 MG TABCR PO SCH ×2 (08:28→20:28)
[2018-05-06] MEDS: ASPIRIN 81 MG ECTAB PO SCH (08:29)
[2018-05-06] MEDS: METOPROLOL SUCC 50MG EXT REL TAB PO SCH (08:29)
[2018-05-06] MEDS: LOSARTAN POTASSIUM 50 MG TAB PO SCH (08:29)
[2018-05-06] MEDS: INSULIN DETEMIR FLEXPEN/FLEX TOUCH 100 UNITS/ML 3ML SC SCH ×2 (08:32→20:54)
--- NOTE | 2018-05-06 08:42 | Anesthesiology Progress Note ---
Date of Service May 06, 2018 Anesthesia Post Procedure Vital Signs Vital Signs: Temp Pulse Pulse Pulse Resp BP Pulse Ox 05/06/18 07:10 37.0 C 99 H 16 129/70 99 05/06/18 03:46 36.9 C 99 H 18 108/70 94 05/05/18 23:44 37.4 C 94 H 16 120/72 95 05/05/18 18:33 37.0 C 105 H 17 113/76 97 05/05/18 15:50 36.8 C 95 H 18 121/73 98 05/05/18 14:58 36.8 C 89 18 118/74 98 05/05/18 13:56 36.7 C 89 18 126/86 98 05/05/18 13:25 36.5 C 87 18 118/76 97 05/05/18 12:57 37 C 90 18 133/78 98 05/05/18 12:19 37.1 C 93 H 15 147/83 H 96 05/05/18 12:10 37.1 C 94 H 15 152/79 H 95 05/05/18 12:00 92 H 16 165/82 H 100 05/05/18 11:50 95 H 14 169/88 H 100 05/05/18 11:40 94 H 15 169/104 H 100 05/05/18 11:30 36.8 C 94 H 14 158/89 H 96 Pain Intensity Medial Back: Pain Intensity: 8 Notes Mental Status: alert / awake / arousable Patient Amnestic to Procedure: Yes Nausea / Vomiting: adequately controlled Pain: adequately controlled Airway Patency, RR, SpO2: stable & adequate BP & HR: stable & adequate Hydration State: stable & adequate Anesthetic Complications: no major complications apparent and Pt Satisfied with anesthetic care
[2018-05-06] MEDS ORDERED: SODIUM CHLORIDE 0.9% 250 ML IV PRN (08:57)
[2018-05-06] MEDS ORDERED: SERTRALINE HCL 50 MG TABLET PO SCH (09:00)
[2018-05-06] MEDS ORDERED: FLUTICASONE/SALMETEROL 250/50 (ADVAIR) 14 PUFF/1 INHALER INH SCH (09:00)
--- NOTE | 2018-05-06 09:26 | Orthopedic Progress Note ---
Date of Service May 06, 2018 Assessment & Plan (1) Lumbar spinal stenosis: Patient is doing well postop day 1. We will continue GI DVT prophylaxis. Continue with mobilization through physical therapy. We will see him tomorrow and hopefully he will be ready for discharge on Tuesday. Subjective Patient seen in room 322 bedside. He is status post lumbar decompression from L2-S1 conjunction with an instrument infusion. He is feeling well at this point. His pain is well controlled. He is tolerating p.o. without difficulties. He rested well overnight. He denies any other numbness, tingling , or paresthesias. Physical Exam 2 Vital Signs (Past 24 Hours): Last Vital Signs Temp 37.0 C 05/06/18 07:10 Pulse 99 H 05/06/18 07:10 Resp 16 05/06/18 07:10 BP 129/70 05/06/18 07:10 Pulse Ox 99 05/06/18 07:10 Physical Exam: On exam he is alert and oriented. He answers questions appropriately. He is in no apparent distress. His lower extremity exam reveals no focal atrophy strength and sensation are grossly intact. His dressings clean dry and intact. His calves are supple nontender his abdomen soft and nontender.
--- NOTE | 2018-05-06 14:34 | Pharmacy Report ---
Pharmacy Glycemic Short Note 2 - Date of Service May 06, 2018 - Glycemic Short BSG Results (Last 24 hours): 05/05/18 05/05/18 05/05/18 15:56 17:02 18:29 Glucose POC Glucose 333 H 273 H 163 H 05/05/18 05/05/18 05/06/18 20:01 21:45 00:44 Glucose POC Glucose 122 H 79 134 H 05/06/18 05/06/18 05/06/18 04:11 05:50 08:08 Glucose 159 H POC Glucose 162 H 193 H 05/06/18 11:46 Glucose POC Glucose 339 H OUTPATIENT ANTIDIABETIC REGIMEN: * Levemir 32 units SQ BID * Novolog 14 units SQ TIDM * Metformin 1,000mg PO BIDM ASSESSMENT: 05/06/18 * Patient transitioned off of insulin drip onto basal bolus last night. * Unfortunately [facility] Novolog entry was timed out, and fell off patient's profile and patient did not receive correctional or carb coverage insulin this morning with breakfast resulting in BSG of 339mg/dl prior to lunch * No changes at this time, as blood sugars should come back into range with current orders 05/05/18 * 68yo T2DM male with poor outpatient control per recent A1c > 10% * Pt with SEVERE hyperglycemia post-operatively secondary to poor outpatient control coupled with DXM given in OR * Spoke with patient re: glycemic control. His outpatient PCP recently increased his insulin regimen. He is agreeable to IV insulin infusion post- operatively. He did not take his insulin this morning. * Goal is to maintain BSGs <200 mg/dl ideally <150 mg/dl to prevent post-op infectious complications. PLAN FOR INPATIENT GLYCEMIC CONTROL: * Continue Holding outpatient oral diabetes medications * Basal insulin * Lantus 32 units SQ BID * Bolus insulin * NovoLog per scale ACHS or Q6hrs while NPO * Goal Range: Low 110 mg/dL - High 140 mg/dL * Correction Factor: 15 mg/dL/unit * Nutritional / Prandial insulin per carb ratio of 1 unit per 5 grams CHO consumed PLAN FOR DISCHARGE: * Most likely no changes will be needed despite elevated A1c. PCP just increased outpatient doses and will f/u with outpatient provider for further adjustments.
[2018-05-06 15:54] LABS: Hematocrit (blood only) 27.2 % (42-52); Hemoglobin 9.1 g/dL (14.0-18.0); Mean Corpuscular Hgb Conc 33.5 g/dL (32-36); Mean Corpuscular Volume 95.8 fL (80-100); Mean Platelet Volume 11.1 fL (7.4-10.4); Platelet Count 117 K/uL (130-400); RDW Coefficient of Variation 14.4 % (11.5-14.5); RDW Standard Deviation 50.1 fL (36.4-46.3); Red Blood Count 2.84 M/uL (4.7-6.1)
[2018-05-06] MEDS: OXYCODONE HCL IR 5 MG TAB (IMMEDIATE RELEASE) PO PRN (18:29)
[2018-05-06] MEDS ORDERED: ALBUT/IPRATROP 3MG/0.5MG NEB 3 ML VIAL NEB STA (18:34)
[2018-05-06] MEDS: ALBUT/IPRATROP 3MG/0.5MG NEB 3 ML VIAL NEB SCH (18:44)
[2018-05-06] MEDS ORDERED: FUROSEMIDE 20 MG in SYRINGE 0 ML IV ONE (18:45)
--- NOTE | 2018-05-06 18:50 | Hospitalist Progress Note ---
Date of Service May 06, 2018 Assessment & Plan (1) Shortness of breath: With onset of shortness of breath this evening. He did receive 1 unit of blood today. He has a history of COPD but does not seem to be wheezing on exam. He is putting out a lot of bloody drainage in the drain and is tachycardic-I wonder if he has dropped his blood count again. Pulse ox is 90% on room air. -Check stat CBC, BMP and transfuse as needed -We will give Lasix 20 mg IV x1 now -Check chest x-ray, ECG, troponin -Supplemental O2 as needed to keep pulse ox greater than 90-92% -Give DuoNeb stat now and then every 6 hours scheduled -Follow (2) Diabetes mellitus: Hemoglobin A1c is 10.3 with pre-operative testing.Urine microalbumin in September 2017 was 20.2. Previous hemoglobin A1c was 7.7 in 2017 and 7.6 in 2018. Patient reports that he went through a period of noncompliance but recently had medications adjusted by Dr. Schultz. Patient also reports that due to back pain he has not been exercising and has been fairly sedentary Patient started on an insulin drip by pharmacy and is now titrated back to Levemir 32 units twice daily with NovoLog supplemental insulin Pharmacy consult for glycemic control is appreciated Home medications include metformin which will be held while inpatient (3) COPD (chronic obstructive pulmonary disease): Now shortness of breath as above, could be due to acute blood loss anemia versus COPD exacerbation versus volume overload from blood transfusion Patient has never seen a payroll and benefits manager - Reports that he has had pulmonary function tests in the past that [facility] All previous management has been with Dr. Schultz his PCP Recently treated for COPD exacerbation and completed a steroid taper approximately 6 weeks ago. No chronic, long-term steroids as an outpatient -Starting scheduled neb treatments now Outpatient medications include Spiriva and Combivent Respimat. The patient is not taking a steroid inhaler. He is no longer on a long-acting beta agonist. Previously was on Advair but reports no longer taking it Per outpatient record patient is never had pulmonary function tests but was scheduled to get spirometry testing April 24, 2018 at [facility] Continue to monitor (4) Coronary artery disease: Patient denies any history of coronary artery disease but this diagnosis was listed in the chart. He had a recent dobutamine stress test which was normal Hypertension is well controlled We will continue with Toprol and aspirin as well as losartan No lisinopril secondary to cough (5) Lumbar spinal stenosis: Status post lumbar decompression and fusion on 05/[address] Sutton, as described above Continue management per orthospine He lost a lot of blood in surgery and was transfused 1 unit PRBCs on 05/05 and another unit on 05/06 (6) Hypertension: Patient is currently hemodynamically stable and actually blood pressure is mildly elevated Home medications include amlodipine 2.5 mg daily and losartan 50 mg daily. Patient also takes metoprolol ER 50 mg daily and aspirin 81 mg daily Continue with home medications and monitor per protocol Denies any chest pain at this time but is having shortness of breath as above ECG here with sinus tachycardia but no evidence of ischemia (7) Hypercholesterolemia: Continue statin Continue with AHA diet (8) Peripheral neuropathy: Gabapentin 300 mg p.o. 3 times daily Further management per spine Ortho (9) Depression: Continue Wellbutrin SR and sertraline home doses (10) DVT prophylaxis: Thigh-high SCDs Ambulate per spine ortho Aspirin 81 mg daily Disposition-continued hospital stay Subjective Patient started getting very short of breath this evening with lying flat and he felt better when he sat up but still short of breath. Mild cough. No chest pain. His pulse ox is 90% on room air and he is mildly tachycardic, but hypertensive. He felt a little lightheaded with sitting up as well. He has been putting out quite a bit of bloody drainage in his PRABHJOT drain. He was transfused 1 unit of blood this morning for hemoglobin of 7.2 and the repeat blood check this afternoon was appropriately up to 9.1. I discussed his case with the orthopedic spine surgeon on the phone. Review of Systems All systems reviewed & are unremarkable except as noted in HPI & below Physical Exam 2 Vital Signs (Past 24 Hours): Last Vital Signs Temp 37 C 05/06/18 18:24 Pulse 113 H 05/06/18 18:44 Resp 18 05/06/18 18:44 BP 155/78 H 05/06/18 15:44 Pulse Ox 90 05/06/18 18:44 Constitutional: WD/WN, vitals as above Eyes: PERRL, conjunctivae normal, anicteric sclerae ENMT: external ear and nose normal, oropharynx normal Neck: trachea midline, no thyromegaly Respiratory: + respiratory distress (Mild tachypnea) Auscultation: + diminished lung sounds (At the bases); no crackles and no wheezes Cardiovascular: Rate/Rhythm: regular rhythm and + tachycardic Heart Sounds : no murmur Extremities: no edema Gastrointestinal (Abdomen): normal bowel sounds, soft, nontender, no hepatosplenomegaly Musculoskeletal: Extremities: extremities normal to inspection; no cyanosis and no clubbing Skin: no rashes, warm and dry Neurologic: moves all extremities and awake; no focal motor deficits Psychiatric: A+Ox3, euthymic affect Results & Data Laboratory Results 05/06/18 05/06/18 05/06/18 Range/Units 17:04 15:33 11:46 WBC 12.00 H (4.8-10.8) K/uL RBC 2.84 L (4.7-6.1) M/uL Hgb 9.1 L (14.0-18.0) g/dL Hct 27.2 L (42-52) % MCV 95.8 (80-100) fL MCH 32.0 (25-34) pg MCHC 33.5 (32-36) g/dL RDW Std Deviation 50.1 H (36.4-46.3) fL RDW Coeff of Celeste 14.4 (11.5-14.5) % Plt Count 117 L (130-400) K/uL MPV 11.1 H (7.4-10.4) fL Immature Gran % (Auto) % Neut % (Auto) % Lymph % (Auto) % Dyer % (Auto) % Eos % (Auto) % Baso % (Auto) % Immature Gran # (Auto) (0.00-0.02) K/uL Neut # (Auto) (1.4-6.5) K/uL Lymph # (Auto) (1.2-3.4) K/uL Dyer # (Auto) (0.11-0.59) K/uL Eos # (Auto) (0-0.5) K/uL Baso # (Auto) (0-0.2) K/uL RBC Morphology Sodium (136-145) mmol/L Potassium (3.5-5.1) mmol/L Chloride (98-107) mmol/L Carbon Dioxide (21-32) mmol/L Anion Gap (3-11) BUN (7-18) mg/dl Creatinine (0.6-1.4) mg/dl Est Cr Clr Drug Dosing ml/min Est GFR ( Amer) Est GFR (Non-Af Amer) BUN/Creatinine Ratio (10-20) Glucose (70-99) mg/dl POC Glucose 242 H 339 H (70-99) Calcium (8.5-10.1) mg/dl Hepatitis C Ab Screen (Neg) Blood Type Antibody Screen Crossmatch 05/06/18 05/06/18 05/06/18 Range/Units 08:08 05:50 05:50 WBC (4.8-10.8) K/uL RBC (4.7-6.1) M/uL Hgb (14.0-18.0) g/dL Hct (42-52) % MCV (80-100) fL MCH (25-34) pg MCHC (32-36) g/dL RDW Std Deviation (36.4-46.3) fL RDW Coeff of Celeste (11.5-14.5) % Plt Count (130-400) K/uL MPV (7.4-10.4) fL Immature Gran % (Auto) % Neut % (Auto) % Lymph % (Auto) % Dyer % (Auto) % Eos % (Auto) % Baso % (Auto) % Immature Gran # (Auto) (0.00-0.02) K/uL Neut # (Auto) (1.4-6.5) K/uL Lymph # (Auto) (1.2-3.4) K/uL Dyer # (Auto) (0.11-0.59) K/uL Eos # (Auto) (0-0.5) K/uL Baso # (Auto) (0-0.2) K/uL RBC Morphology Sodium 137 (136-145) mmol/L Potassium 4.7 (3.5-5.1) mmol/L Chloride 107 (98-107) mmol/L Carbon Dioxide 25 (21-32) mmol/L Anion Gap 5.0 (3-11) BUN 29 H (7-18) mg/dl Creatinine 1.45 H (0.6-1.4) mg/dl Est Cr Clr Drug Dosing 59.5 ml/min Est GFR ( Amer) 56.5 Est GFR (Non-Af Amer) 48.8 BUN/Creatinine Ratio 19.9 (10-20) Glucose 159 H (70-99) mg/dl POC Glucose 193 H (70-99) Calcium 8.0 L (8.5-10.1) mg/dl Hepatitis C Ab Screen Neg (Neg) Blood Type Antibody Screen Crossmatch 05/06/18 05/06/18 05/06/18 Range/Units 05:50 04:11 00:44 WBC 11.17 H (4.8-10.8) K/uL RBC 2.23 L (4.7-6.1) M/uL Hgb 7.2 L (14.0-18.0) g/dL Hct 21.3 L (42-52) % MCV 95.5 (80-100) fL MCH 32.3 (25-34) pg MCHC 33.8 (32-36) g/dL RDW Std Deviation 48.6 H (36.4-46.3) fL RDW Coeff of Celeste 13.9 (11.5-14.5) % Plt Count 115 L (130-400) K/uL MPV 10.5 H (7.4-10.4) fL Immature Gran % (Auto) 0.3 % Neut % (Auto) 75.5 % Lymph % (Auto) 12.8 % Dyer % (Auto) 11.1 % Eos % (Auto) 0.1 % Baso % (Auto) 0.2 % Immature Gran # (Auto) 0.03 H (0.00-0.02) K/uL Neut # (Auto) 8.44 H (1.4-6.5) K/uL Lymph # (Auto) 1.43 (1.2-3.4) K/uL Dyer # (Auto) 1.24 H (0.11-0.59) K/uL Eos # (Auto) 0.01 (0-0.5) K/uL Baso # (Auto) 0.02 (0-0.2) K/uL RBC Morphology Unremarkable Sodium (136-145) mmol/L Potassium (3.5-5.1) mmol/L Chloride (98-107) mmol/L Carbon Dioxide (21-32) mmol/L Anion Gap (3-11) BUN (7-18) mg/dl Creatinine (0.6-1.4) mg/dl Est Cr Clr Drug Dosing ml/min Est GFR ( Amer) Est GFR (Non-Af Amer) BUN/Creatinine Ratio (10-20) Glucose (70-99) mg/dl POC Glucose 162 H 134 H (70-99) Calcium (8.5-10.1) mg/dl Hepatitis C Ab Screen (Neg) Blood Type Antibody Screen Crossmatch 05/05/18 05/05/18 05/05/18 Range/Units 21:45 20:01 18:29 WBC (4.8-10.8) K/uL RBC (4.7-6.1) M/uL Hgb (14.0-18.0) g/dL Hct (42-52) % MCV (80-100) fL MCH (25-34) pg MCHC (32-36) g/dL RDW Std Deviation (36.4-46.3) fL RDW Coeff of Celeste (11.5-14.5) % Plt Count (130-400) K/uL MPV (7.4-10.4) fL Immature Gran % (Auto) % Neut % (Auto) % Lymph % (Auto) % Dyer % (Auto) % Eos % (Auto) % Baso % (Auto) % Immature Gran # (Auto) (0.00-0.02) K/uL Neut # (Auto) (1.4-6.5) K/uL Lymph # (Auto) (1.2-3.4) K/uL Dyer # (Auto) (0.11-0.59) K/uL Eos # (Auto) (0-0.5) K/uL Baso # (Auto) (0-0.2) K/uL RBC Morphology Sodium (136-145) mmol/L Potassium (3.5-5.1) mmol/L Chloride (98-107) mmol/L Carbon Dioxide (21-32) mmol/L Anion Gap (3-11) BUN (7-18) mg/dl Creatinine (0.6-1.4) mg/dl Est Cr Clr Drug Dosing ml/min Est GFR ( Amer) Est GFR (Non-Af Amer) BUN/Creatinine Ratio (10-20) Glucose (70-99) mg/dl POC Glucose 79 122 H 163 H (70-99) Calcium (8.5-10.1) mg/dl Hepatitis C Ab Screen (Neg) Blood Type Antibody Screen Crossmatch 05/05/18 05/05/18 Range/Units 17:02 05:42 WBC (4.8-10.8) K/uL RBC (4.7-6.1) M/uL Hgb (14.0-18.0) g/dL Hct (42-52) % MCV (80-100) fL MCH (25-34) pg MCHC (32-36) g/dL RDW Std Deviation (36.4-46.3) fL RDW Coeff of Celeste (11.5-14.5) % Plt Count (130-400) K/uL MPV (7.4-10.4) fL Immature Gran % (Auto) % Neut % (Auto) % Lymph % (Auto) % Dyer % (Auto) % Eos % (Auto) % Baso % (Auto) % Immature Gran # (Auto) (0.00-0.02) K/uL Neut # (Auto) (1.4-6.5) K/uL Lymph # (Auto) (1.2-3.4) K/uL Dyer # (Auto) (0.11-0.59) K/uL Eos # (Auto) (0-0.5) K/uL Baso # (Auto) (0-0.2) K/uL RBC Morphology Sodium (136-145) mmol/L Potassium (3.5-5.1) mmol/L Chloride (98-107) mmol/L Carbon Dioxide (21-32) mmol/L Anion Gap (3-11) BUN (7-18) mg/dl Creatinine (0.6-1.4) mg/dl Est Cr Clr Drug Dosing ml/min Est GFR ( Amer) Est GFR (Non-Af Amer) BUN/Creatinine Ratio (10-20) Glucose (70-99) mg/dl POC Glucose 273 H (70-99) Calcium (8.5-10.1) mg/dl Hepatitis C Ab Screen (Neg) Blood Type A Positive Antibody Screen NEGATIVE Crossmatch See Detail ECG Additional Comments: ECG today with sinus tachycardia with rate 116, no evidence of ischemia _ (1) Diabetes mellitus Diabetes mellitus type: type 2 Diabetes mellitus computer terminal operator insulin use: with assisted use Diabetes mellitus complication status: with hyperglycemia Diabetes mellitus complication detail: Diabetic retinopathy severity: Proliferative retinopathy type: Diabetes mellitus macular edema: Laterality : Chronic kidney disease stage: Qualified Code(s): E11.65 - Type 2 diabetes mellitus with hyperglycemia; Z79.4 - [facility] (current) use of insulin (2) Hypertension Hypertension type: essential hypertension Qualified Code(s): I10 - Essential (primary) hypertension
--- NOTE | 2018-05-06 19:13 | XRay Report ---
XR chest 1V portable HISTORY: shortness of breath COMPARISON: Chest 04/19/2018. FINDINGS: The lungs are clear. Cardiac silhouette is normal in size. No pleural effusions. No pneumot horax. IMPRESSION: No acute process. Electronically signed by: Tom Ward M.D. 05/06/2018 7:12 PM
[2018-05-06 19:31] LABS: Hematocrit (blood only) 24.7 % (42-52); Hemoglobin 8.4 g/dL (14.0-18.0); Mean Corpuscular Volume 93.9 fL (80-100); Mean Platelet Volume 10.7 fL (7.4-10.4); Platelet Count 119 K/uL (130-400); RDW Coefficient of Variation 14.7 % (11.5-14.5); RDW Standard Deviation 50.4 fL (36.4-46.3); Red Blood Count 2.63 M/uL (4.7-6.1)
[2018-05-06 19:46] LABS: BUN Creatinine Ratio 18.9 (10-20); Blood Urea Nitrogen 31 mg/dl (7-18); Calcium 8.4 mg/dl (8.5-10.1); Carbon Dioxide 25 mmol/L (21-32); Chloride 105 mmol/L (98-107); Creatinine Clr Calc Pharmacy 52.6 ml/min; Est GFR (African American) 48.7; Glucose 239 mg/dl (70-99); Potassium 4.4 mmol/L (3.5-5.1); Sodium 135 mmol/L (136-145)
[2018-05-06 19:51] LABS: Troponin I < 0.015 ng/ml (0-0.045)
[2018-05-06] MEDS: methylPREDNISolone 40 MG in SYRINGE 0 ML IV SCH (20:24)
[2018-05-06] MEDS: DOCUSATE SODIUM/SENNA 50/8.6MG TAB PO SCH (20:28)
[2018-05-06] MEDS ORDERED: INSULIN DETEMIR FLEXPEN/FLEX TOUCH 100 UNITS/ML 3ML SC STA (21:27)
[2018-05-07] MEDS: POLYETHYLENE (MIRALAX) 17 GM PACK PO SCH ×4 (00:15→17:14)
[2018-05-07] MEDS: INSULIN ASPART 100 UNITS/ML 3 ML PEN SC SCH ×6 (00:15→21:17)
[2018-05-07] MEDS: methylPREDNISolone 40 MG in SYRINGE 0 ML IV SCH ×2 (04:16→12:44)
[2018-05-07 05:46] LABS: Hematocrit (blood only) 24.6 % (42-52); Hemoglobin 8.1 g/dL (14.0-18.0); Mean Corpuscular Hgb Conc 32.9 g/dL (32-36); Mean Corpuscular Volume 96.1 fL (80-100); Mean Platelet Volume 10.8 fL (7.4-10.4); Platelet Count 116 K/uL (130-400); RDW Coefficient of Variation 14.1 % (11.5-14.5); RDW Standard Deviation 49.3 fL (36.4-46.3); Red Blood Count 2.56 M/uL (4.7-6.1); White Blood Count 11.29 K/uL (4.8-10.8)
[2018-05-07 06:10] LABS: Basophils # (auto) 0.01 K/uL (0-0.2); Basophils % (auto) 0.1 %; Immature Granulocytes # (auto) 0.02 K/uL (0.00-0.02); Immature Granulocytes % (auto) 0.2 %; Lymphocytes # (auto) 0.69 K/uL (1.2-3.4); Lymphocytes % (auto) 6.1 %; Monocytes # (auto) 0.76 K/uL (0.11-0.59); Monocytes % (auto) 6.7 %; Neutrophils # (auto) 9.81 K/uL (1.4-6.5); Neutrophils % (auto) 86.9 %; RBC Morphology Unremarkable
[2018-05-07 06:23] LABS: BUN Creatinine Ratio 20.1 (10-20); Calcium 8.5 mg/dl (8.5-10.1); Creatinine Clr Calc Pharmacy 60.8 ml/min; Potassium 5.1 mmol/L (3.5-5.1)
[2018-05-07] MEDS: LOSARTAN POTASSIUM 50 MG TAB PO SCH (07:34)
[2018-05-07] MEDS: GABAPENTIN 300 MG CAP PO SCH ×3 (07:34→21:14)
[2018-05-07] MEDS: BuPROPion SR 100 MG TABCR PO SCH ×2 (07:34→21:14)
[2018-05-07] MEDS: METOPROLOL SUCC 50MG EXT REL TAB PO SCH (07:34)
[2018-05-07] MEDS: SERTRALINE HCL 100 MG TABLET PO SCH (07:35)
[2018-05-07] MEDS: AMLODIPINE BESYLATE 5 MG TAB PO SCH (07:35)
[2018-05-07] MEDS: CEROVITE ADV FORMULA TAB PO SCH (07:35)
[2018-05-07] MEDS: ASPIRIN 81 MG ECTAB PO SCH (07:36)
[2018-05-07] MEDS: ATORVASTATIN 20 MG TAB PO SCH (07:36)
[2018-05-07] MEDS: INSULIN DETEMIR FLEXPEN/FLEX TOUCH 100 UNITS/ML 3ML SC SCH ×2 (07:38→21:12)
[2018-05-07] MEDS: ALBUT/IPRATROP 3MG/0.5MG NEB 3 ML VIAL NEB SCH ×4 (07:45→19:44)
[2018-05-07] MEDS ORDERED: SODIUM POLYSTYRENE SULFONATE 15G/60ML SUSP PO STA (09:00)
--- NOTE | 2018-05-07 09:30 | Pharmacy Report ---
Pharmacy Glycemic Short Note 2 - Date of Service May 07, 2018 - Glycemic Short BSG Results (Last 24 hours): 05/06/18 05/06/18 05/06/18 11:46 17:04 19:09 Glucose 239 H POC Glucose 339 H 242 H 05/06/18 05/07/18 05/07/18 20:32 00:12 03:51 Glucose POC Glucose 237 H 175 H 255 H 05/07/18 05/07/18 05/07/18 05:29 06:38 08:13 Glucose 253 H POC Glucose 318 H 430 H* OUTPATIENT ANTIDIABETIC REGIMEN: * Levemir 32 units SQ BID * Novolog 14 units SQ TIDM * Metformin 1,000mg PO BIDM ASSESSMENT: 05/07/18 * Patient started Solu-medrol 40mg IV Q8H yesterday evening for declining pulmonary status - resulting in hyperglycemia. * Increase Lantus and tighten CF and CR for steroid induced hyperglycemia. * Add accuchecks overnight * Note about BSG of 430mg/dl per RN. * Patient's bedside glucose obtained prior to early breakfast tray. ORDER TAKERS SUPERVISOR forgot patient was an early tray and obtained bedside BSG after patient had eaten their entire meal and received insulin dose. Reading was 430, contacted pharmacy to inform them that this reading was an error. Patient will be rechecked prior to lunch. 05/06/18 * Patient transitioned off of insulin drip onto basal bolus last night. * Unfortunately [facility] Novolog entry was timed out, and fell off patient's profile and patient did not receive correctional or carb coverage insulin this morning with breakfast resulting in BSG of 339mg/dl prior to lunch * No changes at this time, as blood sugars should come back into range with current orders 05/05/18 * 68yo T2DM male with poor outpatient control per recent A1c > 10% * Pt with SEVERE hyperglycemia post-operatively secondary to poor outpatient control coupled with DXM given in OR * Spoke with patient re: glycemic control. His outpatient PCP recently increased his insulin regimen. He is agreeable to IV insulin infusion post- operatively. He did not take his insulin this morning. * Goal is to maintain BSGs <200 mg/dl ideally <150 mg/dl to prevent post-op infectious complications. PLAN FOR INPATIENT GLYCEMIC CONTROL: * Continue Holding outpatient oral diabetes medications * Basal insulin -increase * Lantus 40 units SQ BID * Bolus insulin * NovoLog per scale ACHS or Q6hrs while NPO and at 0000 and 0400 * Goal Range: Low 110 mg/dL - High 140 mg/dL * TIGHTEN: Correction Factor: 10 mg/dL/unit * TIGHTEN: Nutritional / Prandial insulin per carb ratio of 1 unit per 3 grams CHO consumed PLAN FOR DISCHARGE: * Most likely no changes will be needed despite elevated A1c. PCP just increased outpatient doses and will f/u with outpatient provider for further adjustments.
--- NOTE | 2018-05-07 12:28 | Orthopedic Progress Note ---
Date of Service May 07, 2018 Assessment & Plan (1) Lumbar spinal stenosis: This time we will continue physical therapy as tolerated monitor his PRABHJOT output. He may require further transfusion. Present on Admission?: Yes Subjective Back pain is controlled leg symptoms markedly improved. Physical Exam 2 Vital Signs (Past 24 Hours): Last Vital Signs Temp 36.6 C 05/07/18 06:43 Pulse 92 H 05/07/18 11:30 Resp 18 05/07/18 11:30 BP 116/69 05/07/18 06:43 Pulse Ox 93 05/07/18 11:30 Physical Exam: On exam he is neurologically intact. He is been a relating halls.
[2018-05-07] MEDS: OXYCODONE HCL IR 5 MG TAB (IMMEDIATE RELEASE) PO PRN (13:56)
[2018-05-07 15:12] LABS: Hematocrit (blood only) 24.4 % (42-52); Hemoglobin 8.4 g/dL (14.0-18.0); Mean Corpuscular Hgb Conc 34.4 g/dL (32-36); Mean Corpuscular Volume 94.9 fL (80-100); Platelet Count 140 K/uL (130-400); RDW Coefficient of Variation 14.2 % (11.5-14.5); RDW Standard Deviation 48.9 fL (36.4-46.3); Red Blood Count 2.57 M/uL (4.7-6.1); White Blood Count 13.45 K/uL (4.8-10.8)
[2018-05-07 15:38] LABS: BUN Creatinine Ratio 18.5 (10-20); Calcium 9.2 mg/dl (8.5-10.1); Est GFR (African American) 51.4; Est GFR (Non-African American) 44.3; Potassium 4.3 mmol/L (3.5-5.1)
[2018-05-07] MEDS: BISACODYL 10 MG SUPP PR PRN ×2 (15:44→16:18)
[2018-05-07] MEDS: SOD PHOSPHATE/SOD BIPHOSPHATE ENEMA 132 ML BTL PR PRN (18:33)
[2018-05-07] MEDS ORDERED: MAGNESIUM CITRATE 296 ML/BTL PO STA (19:53)
--- NOTE | 2018-05-07 19:58 | Hospitalist Progress Note ---
Date of Service May 07, 2018 Assessment & Plan (1) Lumbar spinal stenosis: Status post lumbar decompression and fusion on 05/[address] Sutton, as described above Continue management per orthospine He lost a lot of blood in surgery and was transfused 1 unit PRBCs on 05/05 and another unit on 05/06 -Continue pain control -PT/OT (2) Diabetes mellitus: With severe hyperglycemia here secondary to corticosteroids Hemoglobin A1c is 10.3 with pre-operative testing.Urine microalbumin in September 2017 was 20.2. Previous hemoglobin A1c was 7.7 in 2017 and 7.6 in 2018. Patient reports that he went through a period of noncompliance but recently had medications adjusted by Dr. Schultz. Patient also reports that due to back pain he has not been exercising and has been fairly sedentary In the postoperative period, the patient was started on an insulin drip by pharmacy and is now titrated back to Levemir with NovoLog supplemental insulin Pharmacy consult for glycemic control is appreciated Home medications include metformin which will be held while inpatient (3) COPD (chronic obstructive pulmonary disease): With acute onset of SOB on the evening of 05/06. He has a history of COPD and did have some wheezing on exam. Pulse ox was 90% on room air at that time. There is no evidence of further blood loss causing the shortness of breath, and ECG showed sinus tachycardia but was without evidence of ischemia and troponin was negative. Chest x-ray was normal. He is now significantly improved with treating with IV steroids and bronchodilator nebulizers making this likely a COPD exacerbation He is weaned off of oxygen -Continue IV steroids but decrease down to 40 mg IV every 12 given severe hyperglycemia and improvement in COPD exacerbation -Continue scheduled duo nebs every 6 hours Outpatient medications include Spiriva and Combivent Respimat. The patient is not taking a steroid inhaler. He is no longer on a long-acting beta agonist. Previously was on Advair but reports no longer taking it Per outpatient record patient is never had pulmonary function tests but was scheduled to get spirometry testing April 24, [address] [facility] Continue to monitor (4) Hypertension: Blood pressures are controlled -Continue Home medications which include amlodipine 2.5 mg daily and metoprolol ER 50 mg daily -Continue aspirin 81 mg daily -Hold losartan for mild acute kidney injury (5) BREONNA (acute kidney injury): creatinine up to 1.45 on postop day #1 and now further up to 1.57 on postop day #2-likely secondary to acute blood loss anemia and hypotension, perhaps some ATN -He did receive a total of 2 units of blood and is now with normal blood pressures -Gave Kayexalate this morning for borderline elevated potassium at 5.1 and now improved to 4.3 on recheck -Continue to follow BMP in the morning (6) Acute blood loss anemia: -hemoglobin dropped from baseline of 13.2 down to 9.8 after the surgery with 1 unit of PRBCs transfused. EBL was 1700 mL's during surgery He is also continued to have significant amount of drainage in his PRABHJOT drain Hemoglobin was then 7.2 on postop day #1, transfused another unit PRBCs and hemoglobin has now remained stable at 8.4 on serial checks -Follow CBC in the morning (7) Hypercholesterolemia: Continue statin Continue with AHA diet (8) Depression: Continue Wellbutrin SR and sertraline home doses (9) Peripheral neuropathy: Gabapentin 300 mg p.o. 3 times daily Further management per spine Ortho (10) DVT prophylaxis: Thigh-high SCDs Ambulate per spine ortho Aspirin 81 mg daily Disposition-continued hospital stay Subjective Patient feeling much improved today with significantly improved shortness of breath. He is weaned off oxygen. He feels like the nebulizer treatments have really helped him. He did ambulate out in the quiroz today a little bit. He is using his incentive spirometer. His biggest complaint is actually significant constipation. He has had rectal suppository and Fleet enema plus MiraLAX with no relief in addition to his senna/docusate. Denies chest pain. His back pain is controlled. Review of Systems All systems reviewed & are unremarkable except as noted in HPI & below Physical Exam 2 Vital Signs (Past 24 Hours): Last Vital Signs Temp 36.4 C L 05/07/18 15:20 Pulse 100 H 05/07/18 19:44 Resp 16 05/07/18 19:44 BP 127/77 05/07/18 15:20 Pulse Ox 95 05/07/18 19:44 Constitutional: WD/WN, vitals as above + obese Eyes: PERRL, conjunctivae normal, anicteric sclerae ENMT: Ears: no hearing impairment Neck: trachea midline, no thyromegaly Respiratory: normal respiratory effort, lungs clear to auscultation Cardiovascular: Rate/Rhythm: regular rhythm and + tachycardic (Mild) Heart Sounds: no murmur Extremities: no edema Gastrointestinal (Abdomen): Inspection/Auscultation: + abdomen distended and normal bowel sounds Percussion/Palpation: abdomen soft (Softly distended, obese) Musculoskeletal: Extremities: extremities normal to inspection; no cyanosis and no clubbing Skin: no rashes, warm and dry Neurologic: moves all extremities and awake; no focal motor deficits Psychiatric: A+Ox3, euthymic affect Results & Data Laboratory Results 05/07/18 05/07/18 05/07/18 Range/Units 16:58 16:54 14:51 WBC (4.8-10.8) K/uL RBC (4.7-6.1) M/uL Hgb (14.0-18.0) g/dL Hct (42-52) % MCV (80-100) fL MCH (25-34) pg MCHC (32-36) g/dL RDW Std Deviation (36.4-46.3) fL RDW Coeff of Celeste (11.5-14.5) % Plt Count (130-400) K/uL MPV (7.4-10.4) fL Immature Gran % (Auto) % Neut % (Auto) % Lymph % (Auto) % [place] % (Auto) % Eos % (Auto) % Baso % (Auto) % Immature Gran # (Auto) (0.00-0.02) K/uL Neut # (Auto) (1.4-6.5) K/uL Lymph # (Auto) (1.2-3.4) K/uL [place] # (Auto) (0.11-0.59) K/uL Eos # (Auto) (0-0.5) K/uL Baso # (Auto) (0-0.2) K/uL RBC Morphology Sodium 137 (136-145) mmol/L Potassium 4.3 D (3.5-5.1) mmol/L Chloride 102 (98-107) mmol/L Carbon Dioxide 28 (21-32) mmol/L Anion Gap 7.0 (3-11) BUN 29 H (7-18) mg/dl Creatinine 1.57 H (0.6-1.4) mg/dl Est Cr Clr Drug Dosing 55.0 ml/min Est GFR ( Amer) 51.4 Est GFR (Non-Af Amer) 44.3 BUN/Creatinine Ratio 18.5 (10-20) Glucose 318 H (70-99) mg/dl POC Glucose 329 H (70-99) Calcium 9.2 (8.5-10.1) mg/dl Beta-Hydroxybutyric Acd 1.45 (0.2-2.81) mg/dl Specimen Hemolysis 05/07/18 05/07/18 05/07/18 Range/Units 14:51 12:03 11:59 WBC 13.45 H (4.8-10.8) K/uL RBC 2.57 L (4.7-6.1) M/uL Hgb 8.4 L (14.0-18.0) g/dL Hct 24.4 L (42-52) % MCV 94.9 (80-100) fL MCH 32.7 (25-34) pg MCHC 34.4 (32-36) g/dL RDW Std Deviation 48.9 H (36.4-46.3) fL RDW Coeff of Celeste 14.2 (11.5-14.5) % Plt Count 140 (130-400) K/uL MPV 11.0 H (7.4-10.4) fL Immature Gran % (Auto) % Neut % (Auto) % Lymph % (Auto) % [place] % (Auto) % Eos % (Auto) % Baso % (Auto) % Immature Gran # (Auto) (0.00-0.02) K/uL Neut # (Auto) (1.4-6.5) K/uL Lymph # (Auto) (1.2-3.4) K/uL [place] # (Auto) (0.11-0.59) K/uL Eos # (Auto) (0-0.5) K/uL Baso # (Auto) (0-0.2) K/uL RBC Morphology Sodium (136-145) mmol/L Potassium (3.5-5.1) mmol/L Chloride (98-107) mmol/L Carbon Dioxide (21-32) mmol/L Anion Gap (3-11) BUN (7-18) mg/dl Creatinine (0.6-1.4) mg/dl Est Cr Clr Drug Dosing ml/min Est GFR ( Amer) Est GFR (Non-Af Amer) BUN/Creatinine Ratio (10-20) Glucose (70-99) mg/dl POC Glucose 351 H* 363 H* (70-99) Calcium (8.5-10.1) mg/dl Beta-Hydroxybutyric Acd (0.2-2.81) mg/dl Specimen Hemolysis 05/07/18 05/07/18 05/07/18 Range/Units 08:13 06:38 05:29 WBC (4.8-10.8) K/uL RBC (4.7-6.1) M/uL Hgb (14.0-18.0) g/dL Hct (42-52) % MCV (80-100) fL MCH (25-34) pg MCHC (32-36) g/dL RDW Std Deviation (36.4-46.3) fL RDW Coeff of Celeste (11.5-14.5) % Plt Count (130-400) K/uL MPV (7.4-10.4) fL Immature Gran % (Auto) % Neut % (Auto) % Lymph % (Auto) % [place] % (Auto) % Eos % (Auto) % Baso % (Auto) % Immature Gran # (Auto) (0.00-0.02) K/uL Neut # (Auto) (1.4-6.5) K/uL Lymph # (Auto) (1.2-3.4) K/uL [place] # (Auto) (0.11-0.59) K/uL Eos # (Auto) (0-0.5) K/uL Baso # (Auto) (0-0.2) K/uL RBC Morphology Sodium 135 L (136-145) mmol/L Potassium 5.1 D (3.5-5.1) mmol/L Chloride 107 (98-107) mmol/L Carbon Dioxide 26 (21-32) mmol/L Anion Gap 2.0 L (3-11) BUN 29 H (7-18) mg/dl Creatinine 1.42 H (0.6-1.4) mg/dl Est Cr Clr Drug Dosing 60.8 ml/min Est GFR ( Amer) 58.0 Est GFR (Non-Af Amer) 50.0 BUN/Creatinine Ratio 20.1 H (10-20) Glucose 253 H (70-99) mg/dl POC Glucose 430 H* 318 H (70-99) Calcium 8.5 (8.5-10.1) mg/dl Beta-Hydroxybutyric Acd (0.2-2.81) mg/dl Specimen Hemolysis 05/07/18 05/07/18 05/07/18 Range/Units 05:29 03:51 00:12 WBC 11.29 H (4.8-10.8) K/uL RBC 2.56 L (4.7-6.1) M/uL Hgb 8.1 L (14.0-18.0) g/dL Hct 24.6 L (42-52) % MCV 96.1 (80-100) fL MCH 31.6 (25-34) pg MCHC 32.9 (32-36) g/dL RDW Std Deviation 49.3 H (36.4-46.3) fL RDW Coeff of Celeste 14.1 (11.5-14.5) % Plt Count 116 L (130-400) K/uL MPV 10.8 H (7.4-10.4) fL Immature Gran % (Auto) 0.2 % Neut % (Auto) 86.9 % Lymph % (Auto) 6.1 % [place] % (Auto) 6.7 % Eos % (Auto) 0.0 % Baso % (Auto) 0.1 % Immature Gran # (Auto) 0.02 (0.00-0.02) K/uL Neut # (Auto) 9.81 H (1.4-6.5) K/uL Lymph # (Auto) 0.69 L (1.2-3.4) K/uL [place] # (Auto) 0.76 H (0.11-0.59) K/uL Eos # (Auto) 0.00 (0-0.5) K/uL Baso # (Auto) 0.01 (0-0.2) K/uL RBC Morphology Unremarkable Sodium (136-145) mmol/L Potassium (3.5-5.1) mmol/L Chloride (98-107) mmol/L Carbon Dioxide (21-32) mmol/L Anion Gap (3-11) BUN (7-18) mg/dl Creatinine (0.6-1.4) mg/dl Est Cr Clr Drug Dosing ml/min Est GFR ( Amer) Est GFR (Non-Af Amer) BUN/Creatinine Ratio (10-20) Glucose (70-99) mg/dl POC Glucose 255 H 175 H (70-99) Calcium (8.5-10.1) mg/dl Beta-Hydroxybutyric Acd (0.2-2.81) mg/dl Specimen Hemolysis 05/06/18 Range/Units 20:32 WBC (4.8-10.8) K/uL RBC (4.7-6.1) M/uL Hgb (14.0-18.0) g/dL Hct (42-52) % MCV (80-100) fL MCH (25-34) pg MCHC (32-36) g/dL RDW Std Deviation (36.4-46.3) fL RDW Coeff of Celeste (11.5-14.5) % Plt Count (130-400) K/uL MPV (7.4-10.4) fL Immature Gran % (Auto) % Neut % (Auto) % Lymph % (Auto) % [place] % (Auto) % Eos % (Auto) % Baso % (Auto) % Immature Gran # (Auto) (0.00-0.02) K/uL Neut # (Auto) (1.4-6.5) K/uL Lymph # (Auto) (1.2-3.4) K/uL [place] # (Auto) (0.11-0.59) K/uL Eos # (Auto) (0-0.5) K/uL Baso # (Auto) (0-0.2) K/uL RBC Morphology Sodium (136-145) mmol/L Potassium (3.5-5.1) mmol/L Chloride (98-107) mmol/L Carbon Dioxide (21-32) mmol/L Anion Gap (3-11) BUN (7-18) mg/dl Creatinine (0.6-1.4) mg/dl Est Cr Clr Drug Dosing ml/min Est GFR ( Amer) Est GFR (Non-Af Amer) BUN/Creatinine Ratio (10-20) Glucose (70-99) mg/dl POC Glucose 237 H (70-99) Calcium (8.5-10.1) mg/dl Beta-Hydroxybutyric Acd (0.2-2.81) mg/dl Specimen Hemolysis _ (1) Diabetes mellitus Diabetes mellitus type: type 2 Diabetes mellitus superintendent terminal insulin use: with superintendent terminal use Diabetes mellitus complication status: with hyperglycemia Diabetes mellitus complication detail: Diabetic retinopathy severity: Proliferative retinopathy type: Diabetes mellitus macular edema: Laterality : Chronic kidney disease stage: Qualified Code(s): E11.65 - Type 2 diabetes mellitus with hyperglycemia; Z79.4 - intermediate (current) use of insulin (2) COPD (chronic obstructive pulmonary disease) COPD type: COPD with acute exacerbation Qualified Code(s): J44.1 - Chronic obstructive pulmonary disease with (acute) exacerbation (3) Hypertension Hypertension type: essential hypertension Qualified Code(s): I10 - Essential (primary) hypertension
[2018-05-07] MEDS ORDERED: INSULIN DETEMIR FLEXPEN/FLEX TOUCH 100 UNITS/ML 3ML SC STA (21:03)
[2018-05-07] MEDS: DOCUSATE SODIUM/SENNA 50/8.6MG TAB PO SCH (21:14)
[2018-05-08] MEDS: POLYETHYLENE (MIRALAX) 17 GM PACK PO SCH ×5 (00:28→23:40)
[2018-05-08] MEDS: methylPREDNISolone 40 MG in SYRINGE 0 ML IV SCH ×2 (00:28→11:58)
[2018-05-08] MEDS: INSULIN ASPART 100 UNITS/ML 3 ML PEN SC SCH ×7 (00:30→23:46)
[2018-05-08 05:57] LABS: Hematocrit (blood only) 23.2 % (42-52); Hemoglobin 7.7 g/dL (14.0-18.0); Immature Granulocytes # (auto) 0.04 K/uL (0.00-0.02); Immature Granulocytes % (auto) 0.3 %; Lymphocytes # (auto) 0.71 K/uL (1.2-3.4); Lymphocytes % (auto) 5.5 %; Mean Corpuscular Hgb Conc 33.2 g/dL (32-36); Mean Corpuscular Volume 96.3 fL (80-100); Mean Platelet Volume 10.7 fL (7.4-10.4); Monocytes # (auto) 0.67 K/uL (0.11-0.59); Monocytes % (auto) 5.2 %; Neutrophils # (auto) 11.54 K/uL (1.4-6.5); Platelet Count 125 K/uL (130-400); RDW Coefficient of Variation 13.9 % (11.5-14.5); RDW Standard Deviation 48.8 fL (36.4-46.3); Red Blood Count 2.41 M/uL (4.7-6.1); White Blood Count 12.96 K/uL (4.8-10.8)
[2018-05-08 06:30] LABS: BUN Creatinine Ratio 23.4 (10-20); Calcium 8.6 mg/dl (8.5-10.1); Creatinine Clr Calc Pharmacy 65.9 ml/min; Est GFR (African American) 63.9; Est GFR (Non-African American) 55.2; Potassium 4.1 mmol/L (3.5-5.1)
[2018-05-08 06:53] LABS: Rouleaux 1+
[2018-05-08] MEDS: GABAPENTIN 300 MG CAP PO SCH ×3 (07:16→21:40)
[2018-05-08] MEDS: BuPROPion SR 100 MG TABCR PO SCH ×2 (07:16→21:40)
[2018-05-08] MEDS: SERTRALINE HCL 100 MG TABLET PO SCH (07:16)
[2018-05-08] MEDS: ASPIRIN 81 MG ECTAB PO SCH (07:17)
[2018-05-08] MEDS: AMLODIPINE BESYLATE 5 MG TAB PO SCH (07:17)
[2018-05-08] MEDS: METOPROLOL SUCC 50MG EXT REL TAB PO SCH (07:17)
[2018-05-08] MEDS: CEROVITE ADV FORMULA TAB PO SCH (07:17)
[2018-05-08] MEDS: ATORVASTATIN 20 MG TAB PO SCH (07:17)
[2018-05-08] MEDS: ALBUT/IPRATROP 3MG/0.5MG NEB 3 ML VIAL NEB SCH ×2 (07:31→11:12)
[2018-05-08] MEDS: INSULIN DETEMIR FLEXPEN/FLEX TOUCH 100 UNITS/ML 3ML SC SCH (08:07)
--- NOTE | 2018-05-08 08:25 | Anesthesiology Progress Note ---
Date of Service May 08, 2018 Anesthesia Post Procedure Vital Signs Vital Signs: Temp Pulse Pulse Resp BP Pulse Ox 05/08/18 07:32 102 H 14 99 05/08/18 06:35 36.7 C 98 H 18 135/72 93 05/07/18 23:15 36.6 C 103 H 18 123/77 96 05/07/18 19:44 100 H 16 95 05/07/18 15:27 104 H 18 96 05/07/18 15:20 36.4 C L 104 H 19 127/77 92 05/07/18 11:30 92 H 18 93 05/07/18 08:32 97 Pain Intensity Medial Back: Pain Intensity: 0 Notes Mental Status: alert / awake / arousable and participated in evaluation Nausea / Vomiting: adequately controlled Pain: adequately controlled Airway Patency, RR, SpO2: stable & adequate BP & HR: stable & adequate Hydration State: stable & adequate
[2018-05-08] MEDS ORDERED: INSULIN DETEMIR FLEXPEN/FLEX TOUCH 100 UNITS/ML 3ML SC STA (08:51)
[2018-05-08] MEDS ORDERED: DOCUSATE SODIUM/SENNA 50/8.6MG TAB PO STA (13:31)
[2018-05-08] MEDS ORDERED: INSULIN HUMAN REGULAR PER UNIT 10 UNITS in SYRINGE 9.9 ML IV STA (14:30)
[2018-05-08] MEDS ORDERED: SODIUM CHLORIDE 0.9% 250 ML IV PRN ×2 (14:43→15:06)
--- NOTE | 2018-05-08 15:02 | Pharmacy Report ---
Pharmacy Glycemic Short Note 2 - Date of Service May 08, 2018 - Glycemic Short BSG Results (Last 24 hours): 05/07/18 05/07/18 05/07/18 14:51 16:58 20:47 Glucose 318 H POC Glucose 329 H 319 H 05/08/18 05/08/18 05/08/18 00:27 03:59 05:35 Glucose 195 H POC Glucose 237 H 221 H 05/08/18 05/08/18 05/08/18 06:35 12:01 14:27 Glucose POC Glucose 221 H 372 H* 337 H OUTPATIENT ANTIDIABETIC REGIMEN: * Levemir 32 units SC BID * Novolog 14 units SC TIDM * Metformin 1000mg PO BIDM ASSESSMENT: 05/08/18 * Hyperglycemia persists despite significantly higher doses of insulin being given. Patient's BG ranged 195-372 mg/dL past 24 hours, usually higher than 220 mg/dL. He received 265 units yesterday, which is incr' from 126 units given on 05/06/18. * Patient remains on IV methylprednisolone 40mg BID. * Per nursing staff, likely sneaking food/drink to patient (patient was drinking a large cup of hot chocolate after lunch). Possible that carbs are not being fully covered. * Levemir dose was incr' last night, but fasting BG still elevated this AM. Therefore, additional 20 units (total of 60 units) Levemir was given this morning. Pre-lunch BG was 372 mg/dL, so patient received Novolog 57 units. Had nursing recheck BG and it was still elevated at 337 mg/dL at ~1430. 05/07/18 * Patient started Solu-medrol 40mg IV Q8H yesterday evening for declining pulmonary status - resulting in hyperglycemia. * Increase Lantus and tighten CF and CR for steroid induced hyperglycemia. * Add accuchecks overnight * Note about BSG of 430mg/dl per RN. * Patient's bedside glucose obtained prior to early breakfast tray. [employer] forgot patient was an early tray and obtained bedside BSG after patient had eaten their entire meal and received insulin dose. Reading was 430, contacted pharmacy to inform them that this reading was an error. Patient will be rechecked prior to lunch. 05/06/18 * Patient transitioned off of insulin drip onto basal bolus last night. * Unfortunately ACHS Novolog entry was timed out, and fell off patient's profile and patient did not receive correctional or carb coverage insulin this morning with breakfast resulting in BSG of 339mg/dl prior to lunch * No changes at this time, as blood sugars should come back into range with current orders 05/05/18 * 68yo T2DM male with poor outpatient control per recent A1c > 10% * Pt with SEVERE hyperglycemia post-operatively secondary to poor outpatient control coupled with DXM given in OR * Spoke with patient re: glycemic control. His outpatient PCP recently increased his insulin regimen. He is agreeable to IV insulin infusion post- operatively. He did not take his insulin this morning. * Goal is to maintain BSGs <200 mg/dl ideally <150 mg/dl to prevent post-op infectious complications. PLAN FOR INPATIENT GLYCEMIC CONTROL: * Continue Holding outpatient oral diabetes medications * Give IV insulin 10 units x 1 at ~1500 * Basal insulin - increase * Levemir per scale SC BID * 60 units if BG 160mg/dL or lower * 70 units if BG 161mg/dL or higher * Bolus insulin * NovoLog per scale ACHS or Q6hrs while NPO and at 0000 and 0400 * Goal Range: Low 110 mg/dL - High 140 mg/dL * TIGHTEN: Correction Factor: 6 mg/dL/unit * TIGHTEN: Nutritional / Prandial insulin per carb ratio of 1 unit per 2 grams CHO consumed * If BG remains >300 mg/dL despite above changes, will need to consider restarting insulin drip PLAN FOR DISCHARGE: * Most likely no changes will be needed despite elevated A1c. PCP just increased outpatient doses and will f/u with outpatient provider for further adjustments.
--- NOTE | 2018-05-08 16:45 | Hospitalist Progress Note ---
Date of Service May 08, 2018 Assessment & Plan (1) Lumbar spinal stenosis: Status post lumbar decompression and fusion on 05/[address] Sutton. - Continue management per ortho - He lost a lot of blood in surgery and was transfused 1 unit PRBCs on 05/05 and another unit on 05/06. - Continued pain control - PT/OT per primary team (2) COPD (chronic obstructive pulmonary disease): With acute onset of SOB on the evening of 05/06. He has a history of COPD and did have some wheezing on exam. He is now significantly improved with treating with IV steroids and bronchodilator nebulizers making this likely a COPD exacerbation. He is weaned off of oxygen. Per outpatient records, patient has never had pulmonary function tests but was scheduled to get spirometry testing April 24, 2018 at [facility]. - Continue home Spiriva - Switched IV steroids to oral on 05/08. - Continue DuoNebs Q6h PRN (3) Acute blood loss anemia: Hemoglobin dropped from baseline of 13.2 down to 9.8 after the surgery with 1 unit of PRBCs transfused. EBL was 1700 mLs during surgery. He also continued to have significant amount of drainage in his PRABHJOT drain. Hemoglobin was then 7.2 on postop day #1, transfused another unit PRBCs and hemoglobin has now remained stable at 8.4 on serial checks. - On 05/08, hgb was down slightly at 7.7. No symptoms. - Follow CBC in the morning (4) BREONNA (acute kidney injury): Creatinine was up to 1.45 on postop day #1 and then up to 1.57 on postop day #2. Likely secondary to acute blood loss anemia and hypotension, perhaps some ATN. - By 05/08, had returned to baseline of 1.1-1.3. - Monitor Cr while inpatient (5) Diabetes mellitus: With severe hyperglycemia here secondary to corticosteroids. A1c was 10.3 % with pre-operative testing. Patient reported that he went through a period of noncompliance but recently had medications adjusted by Dr. Schultz. - In the postoperative period, the patient was started on an insulin drip by pharmacy and is now titrated back to Levemir with NovoLog supplemental insulin. - Pharmacy consult for glycemic control is appreciated (6) Hypertension: Blood pressures are controlled with recents ~140/80. - Continue home medications which include amlodipine 2.5 mg daily, losartan 50mg PO daily, and metoprolol ER 50 mg daily. - Continue aspirin 81 mg daily - Resume losartan on 05/09 as BREONNA has resolved (7) Hypercholesterolemia: - Continue statin & AHA diet. (8) Depression: No major inpatient concerns. - Continue Wellbutrin SR and sertraline home doses (9) Peripheral neuropathy: Likely due to spinal cord issues and diabetes. - Continue gabapentin 300 mg p.o. 3 times daily - Further management per spine Ortho (10) DVT prophylaxis: Thigh-high SCDs Ambulate per spine ortho Aspirin 81 mg daily Subjective Patient feeling much well today with no shortness of breath, no lightheadedness , dizziness, or other concerns. Reports no fevers/chills, chest pain, shortness of breath, abdominal pain, nausea, or vomiting. Physical Exam 2 Vital Signs (Past 24 Hours): Last Vital Signs Temp 36.8 C 05/08/18 15:27 Pulse 100 H 05/08/18 15:27 Resp 20 05/08/18 15:27 BP 138/77 05/08/18 15:27 Pulse Ox 94 05/08/18 15:27 Constitutional: WD/WN, vitals as above + obese Eyes: PERRL, conjunctivae normal, anicteric sclerae ENMT: external ear and nose normal, oropharynx normal Ears: no hearing impairment Neck: trachea midline, no thyromegaly Respiratory: normal respiratory effort, lungs clear to auscultation + respiratory distress (Mild tachypnea) Auscultation: + diminished lung sounds (At the bases); no crackles and no wheezes Cardiovascular: Rate/Rhythm: regular rhythm and + tachycardic (Mild) Heart Sounds: no murmur Extremities: no edema Gastrointestinal (Abdomen): normal bowel sounds, soft, nontender, no hepatosplenomegaly Inspection/Auscultation: + abdomen distended and normal bowel sounds Percussion/Palpation: abdomen soft (Softly distended, obese) Musculoskeletal: Extremities: extremities normal to inspection; no cyanosis and no clubbing Skin: no rashes, warm and dry Neurologic: moves all extremities and awake; no focal motor deficits Psychiatric: A+Ox3, euthymic affect _ (1) Diabetes mellitus Diabetes mellitus type: type 2 Diabetes mellitus fpc insulin use: with fpc use Diabetes mellitus complication status: with hyperglycemia Diabetes mellitus complication detail: Diabetic retinopathy severity: Proliferative retinopathy type: Diabetes mellitus macular edema: Laterality : Chronic kidney disease stage: Qualified Code(s): E11.65 - Type 2 diabetes mellitus with hyperglycemia; 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
[2018-05-08] MEDS ORDERED: INSULIN DETEMIR SC SCH ×2 (21:00→22:00)
[2018-05-08] MEDS ORDERED: INSULIN DETEMIR SC STA (21:06)
[2018-05-08] MEDS: DOCUSATE SODIUM/SENNA 50/8.6MG TAB PO SCH (21:40)
[2018-05-08] MEDS: SOD PHOSPHATE/SOD BIPHOSPHATE ENEMA 132 ML BTL PR PRN (22:09)
[2018-05-09] MEDS: SOD PHOSPHATE/SOD BIPHOSPHATE ENEMA 132 ML BTL PR PRN (01:33)
[2018-05-09] MEDS: BISACODYL 10 MG SUPP PR PRN (02:31)
[2018-05-09] MEDS: INSULIN ASPART 100 UNITS/ML 3 ML PEN SC SCH ×5 (04:02→21:31)
[2018-05-09] MEDS: POLYETHYLENE (MIRALAX) 17 GM PACK PO SCH ×3 (05:35→18:42)
[2018-05-09 06:28] LABS: Nucleated RBC % (auto) 0.6 %
[2018-05-09 07:08] LABS: Hematocrit (blood only) 30.3 % (42-52); Hemoglobin 10.2 g/dL (14.0-18.0); Mean Corpuscular Hgb Conc 33.7 g/dL (32-36); Mean Corpuscular Volume 93.5 fL (80-100); Mean Platelet Volume 11.1 fL (7.4-10.4); Platelet Count 209 K/uL (130-400); RDW Coefficient of Variation 14.6 % (11.5-14.5); RDW Standard Deviation 49.8 fL (36.4-46.3); Red Blood Count 3.24 M/uL (4.7-6.1); White Blood Count 17.44 K/uL (4.8-10.8)
[2018-05-09] MEDS: ATORVASTATIN 20 MG TAB PO SCH (08:06)
[2018-05-09] MEDS: AMLODIPINE BESYLATE 5 MG TAB PO SCH (08:06)
[2018-05-09] MEDS: BuPROPion SR 100 MG TABCR PO SCH ×2 (08:07→21:30)
[2018-05-09] MEDS: METOPROLOL SUCC 50MG EXT REL TAB PO SCH (08:07)
[2018-05-09] MEDS: SERTRALINE HCL 100 MG TABLET PO SCH (08:08)
[2018-05-09] MEDS: ASPIRIN 81 MG ECTAB PO SCH (08:08)
[2018-05-09] MEDS: CEROVITE ADV FORMULA TAB PO SCH (08:08)
[2018-05-09] MEDS: GABAPENTIN 300 MG CAP PO SCH ×3 (08:08→21:30)
[2018-05-09] MEDS: LOSARTAN POTASSIUM 50 MG TAB PO SCH (08:33)
[2018-05-09] MEDS ORDERED: INSULIN DETEMIR SC SCH (09:00)
[2018-05-09] MEDS ORDERED: predniSONE 20 MG TAB PO SCH (09:00)
--- NOTE | 2018-05-09 09:27 | Orthopedic Progress Note ---
Date of Service May 08, 2018 Assessment & Plan (1) Neurogenic claudication due to lumbar spinal stenosis: We will transfuse 2 units today. Continue to advance his bowel regimen. Hopefully discharge home tomorrow. Present on Admission?: Yes Subjective Back pain is controlled leg pain improved. Still no bowel movement. Physical Exam 2 Vital Signs (Past 24 Hours): Last Vital Signs Temp 36.5 C 05/09/18 07:04 Pulse 85 05/09/18 07:04 Resp 18 05/09/18 07:04 BP 157/88 H 05/09/18 07:04 Pulse Ox 97 05/09/18 07:04 Physical Exam: Is good strength testing. Ambulating halls.
--- NOTE | 2018-05-09 10:22 | Discharge Summary ---
Date of Service May 09, 2018 Admission HPI Per Admitting Provider This is a 68-year-old male with chronic persistent back and bilateral leg pain. After failing extensive course of nonoperative care is here for surgical intervention. Principal Diagnosis Lumbar spinal stenosis with neurogenic claudication Discharge Data Allergies Allergy/AdvReac Type Severity Reaction Status Date / Time MICKEY Inhibitors AdvReac Mild Cough Verified 05/07/18 14:13 hydrocodone AdvReac Unknown constipatio Verified 05/05/18 06:16 n Consultations 05/05/18 13:17 Consult Case Management - Discharge Planning Routine Consult Hospitalist Routine Procedures Performed Operation Date: 05/05/18 07:45 Actual Procedures p L2-S1 Decompression and Fusion, Use of Infuse and Osteoamp. - Sarwat Sutton DO Ordered Studies 05/05/18 07:45 FL fluoroscopy <1hr Routine FL lumbar spine 2-3V Routine Hospital Course (1) Neurogenic claudication due to lumbar spinal stenosis: Patient underwent multilevel lumbar decompression and fusion tolerated this well was taken to the orthopedic floor postoperatively. Postoperatively he did require blood transfusion on 2 separate occasions secondary to continuing dropping hematocrit. Nevertheless his neurogenic claudicatory complaints are steadily improving. Back pain controlled. Bowels finally moving appropriately. Subsequently was discharged home. Discharge orders and instructions found in the chart for further review. Total Time Total Time Spent Total Time Spent (In Minutes): Ricky Discharge Plan Discharge Items Patient Disposition: Home - Self-Care Reason For Visit: LUMBAR SPINAL STENOSIS W/OUT NEUROGENIC CLAUDICATI Discharge Diagnosis: Lumbar spinal stenosis with neurogenic claudication Discharge Goals: Improve function Activity: Per 'Additional Instructions' section Non-emergency contact: Primary Care Provider Call non-emergency contact if: you have any medication questions Follow-up/Referrals: Ricky Schultz MD [Primary Care Provider] - Diet: Regular Addtl Provider Instructions: ACTIVITY RECOMMENDATIONS: SELF CARE INSTRUCTIONS AFTER THORACIC/LUMBAR FUSIONS 1. You may walk to your tolerance. It is good exercise for your legs and back. Expect some back and intermittent leg aches and pains. 2. You may perform "counter-top" level activities (make a sandwich, willard with a project, etc.). 3. No bending or lifting of more than 10 pounds or back twisting of any nature (roll like a log when turning in bed). 4. You may ride in a car for 20-30 minutes at a time. No driving until after your first visit with your doctor. 5. Frequent changes of position and restricting sitting to 30 minutes at a time will help limit the amount of back spasms and stiffness you may experience. 6. You may discontinue the use of ambulatory aids (cane, crutches, etc.) once your strength and confidence allow. 7. You may cash grain farmer the shower and let water strike your incision when you arrive home at least once daily. Do not take a tub bath, sit in a hot tub or go into a swimming pool until after your first recheck in the office. SPECIAL CARE INSTRUCTIONS: VERY IMPORTANT TO READ AND REVIEW A. Your surgical incision has been closed with a cosmetic suture under the skin that will dissolve in about 6 weeks. In 14 days, you can use a pair of clean scissors and cut the suture that is left outside of the skin at the ends of your incision. 1. The small skin tapes can be removed 7 days after surgery if they have not fallen off by that point. 2. You may keep the wound open to air as much as possible to promote healing after post-op day number 5 unless told otherwise by your doctor. 3. If you think the wound looks like it is becoming infected (redness or worsening drainage) and/or you are experiencing fever, chill or worsening back pain and muscle spasms, contact the office so that we may evaluate you as soon as possible. B. Complications are uncommon, but please contact us if you have any signs or symptoms of: 1. wound infection (fever higher than 102.5 degrees F, redness, separation of wound, drainage, or increasing pain from the incision) 2. blood clots in legs (pain, swelling, redness and warmth in legs) 3. urinary tract infection (fever higher than 102.5 degrees F, burning upon urination or increased frequency of urination) 4. nerve problems (inability to walk on your toes or heels, numbness, loss of bowel or bladder control) 5. any other symptoms that concern you C. Please call the office at if you have any concerns or questions about your operation or recovery. D. No smoking! Smoking drastically decreases the chance of a solid fusion. E. Do not take any anti-inflammatory medications (Indocin, Advil, Motrin, Aspirin, Naprosyn, etc.) as these may inhibit the chance of a solid fusion. Tylenol is okay to take for pain. MANAGING PAIN AFTER SPINAL SURGERY 1. Narcotic medication is intended for short-term use and will be provided for surgical pain. Surgical pain usually lasts for a period of 4-6 weeks. Narcotic medication includes Percocet, Vicodin, Darvocet, Tylenol #3 or Lortab. 2. Longer-term pain is more appropriately treated with non-narcotic medication such as Tylenol ES. 3. Muscle spasm is not appropriately treated with narcotics. Muscle relaxers such as Soma, Flexeril or Skelaxin can be used along with Tylenol ES. 4. Remember that we all live with some "aches and pains". This is not unusual or uncommon after an injury or as we get older. a. Back pain is expected and may include muscle spasms for 4 to 6 weeks after surgery. The pain should gradually improve. If the pain worsens for no apparent reason, please contact the office. b. Intermittent leg pain may also be experienced and should not be concerned about unless it worsens for no apparent reason. If so, please contact the office. 5. We will provide appropriate medication within the normal guidelines of their prescribed use. We will also be very cautious and aware of potential abuse and extended duration of patients' medication needs. a. Pain medications are for your comfort and to assist with sleep and rest so that the tissue can heal. They are not provided in order to return to normal activity and should not be used through the day. To do so or worsening pain at night can result from ongoing tissue damage and development of tolerance to the prescribed medicine. 6. Please allow 2-3 days to process refills. Prescriptions will not be mailed but must be picked up at the office. FOLLOW UP VISIT: Keep your scheduled follow-up appointment. Any questions, please call the office at . Prescriptions: New tramadol 50 mg Tablet 50 mg PO Q4H PRN (Reason: Pain, Moderate) Qty: 30 RF: 0 oxycodone 5 mg Tablet 5 mg PO Q4H PRN (Reason: Pain, Severe) Qty: 30 RF: 0 Continue losartan [Cozaar] 50 mg tablet 50 mg PO QAM RF: 0 metoprolol succinate [Toprol XL] 50 mg tablet extended release 24 hr 50 mg PO QAM RF: 0 amlodipine [Norvasc] 2.5 mg tablet 2.5 mg PO QAM RF: 0 aspirin [Adult Aspirin Regimen] 81 mg tablet,delayed release (DR/EC) 81 mg PO DAILY RF: 0 metformin 1,000 mg tablet 1,000 mg PO BID RF: 0 gabapentin 300 mg capsule 300 mg PO TID RF: 0 bupropion HCl [Wellbutrin SR] 200 mg tablet sustained-release 12 hr 200 mg PO BID RF: 0 tiotropium bromide [Spiriva with HandiHaler] 18 mcg capsule, w/inhalation device 1 cap INH BID PRN (Reason: ASTHMA, COPD) RF: 0 insulin detemir U-100 [Levemir U-100 Insulin] 100 unit/mL solution 32 units SQ BID RF: 0 ipratropium-albuterol [Combivent Respimat] 20-100 mcg/actuation mist 1 puffs INH QID PRN (Reason: ASTHMA, COPD) RF: 0 insulin aspart U-100 [Novolog Flexpen U-100 Insulin] 100 unit/mL insulin pen 14 units SQ TIDM RF: 0 Calcium 1 dose PO DAILY RF: 0 multivitamin with minerals [Daily Multivitamin-Minerals] Tablet 1 tab PO QAM RF: 0 atorvastatin 20 mg tablet 20 mg PO QAM RF: 0 sertraline 100 mg tablet 100 mg PO QAM RF: 0 Stand-Alone Forms: [facility] Discharge Orders: Discharge Order (Routine); Ordered 05/09/18 Ordered By: Sarwat Sutton Admission Data Admit Date/Time: 05/05/18 11:34 Attending Provider: Sarwat Sutton Admit Provider: Sarwat Sutton Primary Care Provider: Ricky Schultz Other Providers: Logan aTveras Service: Surgical Services
--- NOTE | 2018-05-09 14:54 | Hospitalist Progress Note ---
Date of Service May 09, 2018 Assessment & Plan (1) Lumbar spinal stenosis: Status post lumbar decompression and fusion on 05/[address] Sutton. - Continue management per ortho - He lost a lot of blood in surgery and was transfused 1 unit PRBCs on 05/05 and another unit on 05/06. - Continued pain control - PT/OT per primary team (2) Constipation: Likely due to bowel regimen. Has had many bowel regimens including 3 enemas, 3 suppositories, and multiple oral meds. - Methylnaltrexone x 1 - If no improvement, consider lactulose TID until he starts to have BMs. - If no BM by tomorrow, will also get KUB. (3) COPD (chronic obstructive pulmonary disease): With acute onset of SOB on the evening of 05/06. He has a history of COPD and did have some wheezing on exam. He is now significantly improved with treating with IV steroids and bronchodilator nebulizers making this likely a COPD exacerbation. He is weaned off of oxygen. Per outpatient records, patient has never had pulmonary function tests but was scheduled to get spirometry testing April 24, 2018 at [facility]. - Continue home Spiriva - Switched IV steroids to oral on 05/08. - Continue DuoNebs Q6h PRN (4) Acute blood loss anemia: Hemoglobin dropped from baseline of 13.2 down to 9.8 after the surgery with 1 unit of PRBCs transfused. EBL was 1700 mLs during surgery. He also continued to have significant amount of drainage in his PRABHJOT drain. Hemoglobin was then 7.2 on postop day #1, transfused another unit PRBCs and hemoglobin has now remained stable at 8.4 on serial checks. - On 05/08, hgb was down slightly at 7.7. No symptoms, but was transfused 2 additional units. - On 05/09, hgb up to 10.2. (5) BREONNA (acute kidney injury): Creatinine was up to 1.45 on postop day #1 and then up to 1.57 on postop day #2. Likely secondary to acute blood loss anemia and hypotension, perhaps some ATN. - By 05/08, had returned to baseline of 1.1-1.3. - Monitor Cr while inpatient (6) Diabetes mellitus: With severe hyperglycemia here secondary to corticosteroids. A1c was 10.3 % with pre-operative testing. Patient reported that he went through a period of noncompliance but recently had medications adjusted by Dr. Schultz. - In the postoperative period, the patient was started on an insulin drip by pharmacy and is now titrated back to Levemir with NovoLog supplemental insulin. - Pharmacy consult for glycemic control is appreciated (7) Hypertension: Blood pressures are controlled with recents ~140/80. - Continue home medications which include amlodipine 2.5 mg daily, losartan 50mg PO daily, and metoprolol ER 50 mg daily. - Continue aspirin 81 mg daily - Resumed losartan on 05/09 as BREONNA had resolved (8) Hypercholesterolemia: - Continue statin & AHA diet. (9) Depression: No major inpatient concerns. - Continue Wellbutrin SR and sertraline home doses (10) Peripheral neuropathy: Likely due to spinal cord issues and diabetes. - Continue gabapentin 300 mg p.o. 3 times daily - Further management per spine Ortho (11) DVT prophylaxis: Thigh-high SCDs Ambulate per spine ortho Aspirin 81 mg daily Subjective Patient feeling much well today with no shortness of breath, no lightheadedness , dizziness, or other concerns. Is having significant constipation. Reports no fevers/chills, chest pain, shortness of breath, abdominal pain, nausea, or vomiting. Physical Exam 2 Vital Signs (Past 24 Hours): Last Vital Signs Temp 36.5 C 05/09/18 11:01 Pulse 102 H 05/09/18 11:01 Resp 18 05/09/18 11:01 BP 157/88 H 05/09/18 11:01 Pulse Ox 97 05/09/18 11:01 Constitutional: WD/WN, vitals as above + obese Eyes: PERRL, conjunctivae normal, anicteric sclerae ENMT: external ear and nose normal, oropharynx normal Ears: no hearing impairment Neck: trachea midline, no thyromegaly Respiratory: normal respiratory effort, lungs clear to auscultation Auscultation: no crackles and no wheezes Cardiovascular: Rate/Rhythm: regular rhythm and + tachycardic (Mild) Heart Sounds: no murmur Extremities: no edema Gastrointestinal (Abdomen): normal bowel sounds, soft, nontender, no hepatosplenomegaly Inspection/Auscultation: + abdomen distended and normal bowel sounds Percussion/Palpation: abdomen soft (Softly distended, obese) Musculoskeletal: Extremities: extremities normal to inspection; no cyanosis and no clubbing Skin: no rashes, warm and dry Neurologic: moves all extremities and awake; no focal motor deficits Psychiatric: A+Ox3, euthymic affect _ (1) COPD (chronic obstructive pulmonary disease) COPD type: COPD with acute exacerbation Chronic bronchitis type: Emphysema type: Qualified Code(s): J44.1 - Chronic obstructive pulmonary disease with ( acute) exacerbation (2) Diabetes mellitus Diabetes mellitus type: type 2 Diabetes mellitus filler leaf cutter long insulin use: with filler leaf cutter long use Diabetes mellitus complication status: with hyperglycemia Diabetes mellitus complication detail: Diabetic retinopathy severity: Proliferative retinopathy type: Diabetes mellitus macular edema: Laterality : Chronic kidney disease stage: Qualified Code(s): E11.65 - Type 2 diabetes mellitus with hyperglycemia; Z79.4 - keno terminal operator (current) use of insulin (3) Hypertension Hypertension type: essential hypertension Qualified Code(s): I10 - Essential (primary) hypertension
[2018-05-09] MEDS ORDERED: METHYLNALTREXONE BROMIDE 12 MG/0.6 ML VIAL SQ ONE (15:00)
--- NOTE | 2018-05-09 15:06 | Pharmacy Report ---
Pharmacy Glycemic Short Note 2 - Date of Service May 09, 2018 - Glycemic Short BSG Results (Last 24 hours): 05/08/18 05/08/18 05/08/18 17:00 20:35 23:44 POC Glucose 172 H 261 H 151 H 05/09/18 05/09/18 05/09/18 03:59 07:59 12:21 POC Glucose 73 74 151 H OUTPATIENT ANTIDIABETIC REGIMEN: * Levemir 32 units SC BID * Novolog 14 units SC TIDM * Metformin 1000mg PO BIDM * A1c 10.3% 04/19/18 ASSESSMENT: * Please see previous notes for background info, in short: * Mr. Ledesma received 265 units of insulin yesterday with majority of BSGs above goal. During this time he received a single dose of solu medrol 40 mg IV. RN reported that was also sneaking food/drink to patient, therefore carbs were not being fully covered. He was changed to prednisone 40 mg daily starting this morning. * Fasting BSG of 74 mg/dL is below goal. He received a total of 115 units of Lantus yesterday. I have significantly backed of Lantus dosing today since IV steroids have been stopped and severe hyperglycemia has resolved. * I have also loosened Novolog CF/CR although he will likely continue to require tight control with prednisone PLAN FOR INPATIENT GLYCEMIC CONTROL: * Continue Holding outpatient oral diabetes medications * Basal insulin - decrease * Levemir per scale SC BID * 45 units for BSG 160 mg/dL or lower * 50 units for BSG greater than 160 mg/dL * Bolus insulin - loosen * NovoLog per scale ACHS or Q6hrs while NPO and at 0000 and 0400 * Goal Range: Low 110 mg/dL - High 140 mg/dL * Correction Factor: 10 mg/dL/unit * Nutritional / Prandial insulin per carb ratio of 1 unit per 3 grams CHO consumed PLAN FOR DISCHARGE: * Most likely no changes will be needed despite elevated A1c. PCP just increased outpatient doses and will f/u with outpatient provider for further adjustments.
[2018-05-09] MEDS: OXYCODONE HCL IR 5 MG TAB (IMMEDIATE RELEASE) PO PRN (17:34)
[2018-05-09] MEDS: DOCUSATE SODIUM/SENNA 50/8.6MG TAB PO SCH (21:30)
== END 2018-05-09 22:29 | disposition home or self-care (01) | DRG 453 ==
LOC: ASU 05:22 → 3E 11:34